=== PATIENT | male | born 1940 | race Caucasian/White ===

== ENCOUNTER → 2016-04-23 | Outpatient (CLI) | payer OTHER ==
[~2016-04-23] MED LIST: ALFU10TA30 PO; CLC100X PO; IBUP-1427 PO
[2016-04-23 13:49] LABS: CHOLESTEROL/HDL RATIO 3.9
== END | disposition home or self-care (01) ==
LOC: C.LABMFLN 08:10
PROVIDERS: ATTEND Family Medicine
DX: E78.5 Hyperlipidemia, unspecified (principal)

== ENCOUNTER → 2016-06-17 | Outpatient (CLI) | payer OTHER ==
[~2016-06-17] MED LIST changes: +ALFU10TA2 PO; -ALFU10TA30 PO
[2016-06-17 17:52] LABS: URINE APPEARANCE CLEAR (CLEAR); URINE BILIRUBIN NEG (NEG); URINE COLOR YELLOW; URINE NITRITE NEG (NEG); URINE SPECIFIC GRAVITY 1.008 (1.000-1.030); UROBILINOGEN NEG (NEG)
[2016-06-17 17:54] LABS: MANUAL MICROSCOPIC REQUIRED? NO; REVIEW REQ? NO
[2016-06-17 18:09] LABS: BLOOD UREA NITROGEN 17 mg/dl (7-18); BUN/CREATININE RATIO 9.1 (10-20); CALCIUM 8.7 mg/dl (8.5-10.1); CARBON DIOXIDE 28 mmol/L (21-32); CHLORIDE 105 mmol/L (98-107); GLUCOSE 94 mg/dl (70-99); PHOSPHORUS 2.8 mg/dl (2.5-4.9); POTASSIUM 4.1 mmol/L (3.5-5.1); SODIUM 140 mmol/L (136-145)
== END | disposition home or self-care (01) ==
LOC: C.LABMFLN 14:48
PROVIDERS: ATTEND Internal Medicine Nephrology
DX: N18.3 Chronic kidney disease, stage 3 (moderate) (principal)

== ENCOUNTER → 2016-09-26 | Outpatient (CLI) | payer OTHER ==
[~2016-09-26] MED LIST changes: -ALFU10TA2 PO; +ALFU10TA30 PO
== END | disposition home or self-care (01) ==
LOC: C.LABMFLN 07:09
PROVIDERS: ATTEND Urology
DX: C61 Malignant neoplasm of prostate (principal)

== ENCOUNTER → 2017-09-29 | Outpatient (CLI) | payer OTHER ==
[~2017-09-29] MED LIST changes: +ALFU10TA2 PO; -ALFU10TA30 PO
[2017-09-29 13:17] LABS: ALBUMIN 3.4 gm/dl (3.4-5.0); ALKALINE PHOSPHATASE 66 U/L (45-117); ALT/SGPT 26 U/L (12-78); AST/SGOT 20 U/L (15-37); BLOOD UREA NITROGEN 17 mg/dl (7-18); CALCIUM 8.4 mg/dl (8.5-10.1); CARBON DIOXIDE 27 mmol/L (21-32); CREATININE 1.84 mg/dl (0.60-1.40); GLUCOSE 89 mg/dl (70-99); POTASSIUM 4.2 mmol/L (3.5-5.1); SODIUM 138 mmol/L (136-145); TOTAL PROTEIN 6.9 gm/dl (6.4-8.2)
== END | disposition home or self-care (01) ==
LOC: C.LABMFLN 06:57
PROVIDERS: ATTEND Urology
DX: C64.9 Malignant neoplasm of unspecified kidney, except renal pelvis (principal)

== ENCOUNTER 2019-02-22 15:22 | Inpatient (IN) ==
[2019-02-22 16:47] LABS: Basophils # (auto) 0.01 K/uL (0-0.2); Basophils % (auto) 0.1 %; Eosinophils # (auto) 0.09 K/uL (0-0.5); Hematocrit (blood only) 28.8 % (42-52); Hemoglobin 9.9 g/dL (14.0-18.0); Immature Granulocytes # (auto) 0.04 K/uL (0.00-0.02); Immature Granulocytes % (auto) 0.4 %; Lymphocytes % (auto) 16.7 %; Mean Corpuscular Hemoglobin 33.8 pg (25-34); Mean Corpuscular Hgb Conc 34.4 g/dL (32-36); Mean Corpuscular Volume 98.3 fL (80-100); Mean Platelet Volume 9.7 fL (7.4-10.4); Monocytes # (auto) 0.72 K/uL (0.11-0.59); Neutrophils # (auto) 6.63 K/uL (1.4-6.5); Neutrophils % (auto) 73.8 %; Platelet Count 258 K/uL (130-400); RDW Coefficient of Variation 13.1 % (11.5-14.5); RDW Standard Deviation 46.3 fL (36.4-46.3); Red Blood Count 2.93 M/uL (4.7-6.1); White Blood Count 8.99 K/uL (4.8-10.8)
[2019-02-22] MEDS ORDERED: PANTOprazole 80 MG in DEXTROSE 5% 100 ML IV ONE (17:00)
[2019-02-22 17:06] LABS: Alanine Aminotransferase 24 U/L (12-78); Albumin Level 2.8 gm/dl (3.4-5.0); Aspartate Aminotransferase 14 U/L (15-37); BUN Creatinine Ratio 21.6 (10-20); Blood Urea Nitrogen 37 mg/dl (7-18); Calcium 7.7 mg/dl (8.5-10.1); Carbon Dioxide 24 mmol/L (21-32); Chloride 112 mmol/L (98-107); Creatinine Clr Calc Pharmacy 32.3 ml/min; Est GFR (African American) 43.5; Est GFR (Non-African American) 37.5; Glucose 108 mg/dl (70-99); Lipase 151 U/L (73-393); Sodium 139 mmol/L (136-145)
[2019-02-22 17:09] LABS: Albumin Globulin Ratio 0.9 (0.9-2); Alkaline Phosphatase 55 U/L (45-117); Bilirubin,Total 0.3 mg/dl (0.2-1); Globulin 3.1 gm/dl (2.5-4.0); Total Protein 5.9 gm/dl (6.4-8.2)
[2019-02-22] MEDS ORDERED: SODIUM CHLORIDE 0.9% 1000ML 2,000 ML IV ONE (17:14)
[2019-02-22] MEDS ORDERED: OPTIRAY 320 125ml IV PRN (17:48)
--- NOTE | 2019-02-22 18:37 | CT Scan Report ---
CT angio chest PE protocol CLINICAL HISTORY: 78 years-old Male presenting with hematemesis versus hemoptysis, clinical concern f or pulmonary embolus. TECHNIQUE: Multidetector CT angiography of the chest was performed after administration of intravenou s contrast. 3-D volumetric and/or maximum intensity projection (MIP) images were subsequently reconst ructed for review. IV contrast: 118 mL of Optiray 320. One or more dose lowering techniques were used consistent with the principles of ALARA (as low as reasonably achievable), including automatic expos ure control, mA or kV adjustment to individual patient size, and/or use of iterative reconstruction. COMPARISON: Contrast-enhanced chest CT from 11/10/2012. CT DOSE (mGy.cm): The estimated cumulative dose is 872.25 mGy.cm. 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 Pulmonary vasculature: The study is adequate for assessment of the pulmonary vascular tree. No filling defect within the pul monary arteries to suggest embolus. Main pulmonary artery is not enlarged. No flattening of the inter ventricular septum. No intracardiac filling defect. No reflux of contrast into the hepatic veins. Remaining chest: Soft tissues: Normal thyroid and thoracic inlet. Several enlarged and partially calcified mediastinal and bilateral hilar lymph nodes as on prior exam, which likely relate to a history of granulomatous disease. Mild atherosclerosis of the aorta. Normal heart size. Coronary artery calcification. No emma cardial or pleural effusion. Small sliding type hiatal hernia. Calcifications in the spleen and liver likely also relate to history of granulomatous disease. Lungs and airways: No pneumothorax. Mild bronchial wall thickening and trace bronchiectasis with a lo wer lobe predominance. Mild upper lobe predominant centrilobular emphysema. Pulmonary arteries are no t significantly enlarged relative to adjacent bronchi. No interlobular septal thickening. Minimal dep endent changes likely atelectasis. Prominent calcified granulomata in the left upper lobe. Solid 3 mm peripheral right lower lobe pulmonary nodule (series 4 image 49), previously likely obscured due to atelectasis. Solid 3 mm left apical pulmonary nodule (series 4 image 240), similar to prior. Musculoskeletal: Degenerative changes of the spine. IMPRESSION: 1. No evidence of pulmonary embolus. No acute intrathoracic pathology. 2. Emphysema and bronchitis likely smoking-related lung injury. 3. Evidence of old granulomatous disease. 4. Solid pulmonary nodules measuring up to 3 mm. At least one of these has been stable since 2013. T hese are nonspecific and an optional CT scan in 12 months could be considered per Fleischner Society 2017 recommendations below. Summary of Fleischner Society 2017 Recommendations (H Dipak et al. Guidelines for management of i ncidental pulmonary nodules detected on CT images: From the Fleischner Society 2017. Radiology 2017; 284: 228-243.) SOLID NODULES Single nodule; size < 6 mm * Low risk patients: No routine follow-up * High risk patients: Optional CT at 12 months Single nodule; size 6-8 mm * Low risk patients: CT at 6-12 months, then consider CT at 18-24 months * High risk patients: CT at 6-12 months, then at 18-24 months Single nodule; size > 8 mm * Either low or high risk patients: Consider CT at 3 months, PET/CT, or tissue sampling Multiple nodules; size < 6 mm * Low risk patients: No routine follow up * High risk patients: Optional CT at 12 months Multiple nodules; size 6-8 mm * Low risk patients: CT at 3-6 months, then consider CT at 18-24 months * High risk patients: CT at 3-6 months, then at 18-24 months Multiple nodules; size > 8 mm * Low risk patients: CT at 3-6 months, then consider at 18-24 months * High risk patients: CT at 3-6 months, then at 18-24 months SUBSOLID NODULES Single ground-glass nodule * Nodule size < 6 mm: No routine follow-up * Nodule size > or = 6 mm: CT at 6-12 months to confirm persistence, then CT every 2 years until 5 y ears Single part-solid nodule * Nodule size < 6 mm: No routine follow-up * Nodules size > or = 6 mm: CT at 3-6 months to confirm persistence. If unchanged and solid componen t remains < 6 mm, annual CT should be performed for 5 years Multiple nodules * Nodule size < 6 mm: CT at 3-6 months. If stable, consider CT at 2 and 4 years. * Nodules size > or = 6 mm: CT at 3-6 months. Subsequent management based on the most suspicious nod ule(s) NOTE: 1) These guidelines apply to incidental nodules. These guidelines do NOT apply to patients younger th an 35 years, immunocompromised patients, or patients with cancer. 2) Risk categories: * Low risk patients: Minimal or absent history of smoking and/or other known risk factors * High risk patients: History of smoking, exposure to other carcinogens, emphysema, fibrosis, upper lobe location, family history of lung cancer, etc. 3) If a nodule up to 8 mm is partly solid or is ground glass, further follow-up is required after 24 months to exclude possible slow growing adenocarcinoma. ACT 112: Negative or not required by law. Electronically signed by: Chetan Ardon M.D. 02/22/2019 6:36 PM
--- NOTE | 2019-02-22 18:56 | CT Scan Report ---
CT abd pelvis IV con only CLINICAL HISTORY: 78 years-old Male presenting with gi bleed. TECHNIQUE: Multidetector CT of the abdomen and pelvis was performed after the administration of intra venous contrast. IV contrast: 18 mL of Optiray 320. One or more dose lowering techniques were used co nsistent with the principles of ALARA (as low as reasonably achievable), including automatic exposure control, mA or kV adjustment to individual patient size, and/or use of iterative reconstruction. COMPARISON: 06/28/2013. CT DOSE (mGy.cm): The estimated cumulative dose is 872.25. FINDINGS: [employer] topogram: Brachytherapy seeds in the prostate. Lung bases: Normal heart size. No pericardial or pleural effusion. Minimal dependent changes likely a telectasis. Emphysema. Liver: Normal morphology. Few cysts or focally dilated bile ducts noted in the inferior right hepatic lobe. Patent hepatic vasculature. Biliary: No intrahepatic or extrahepatic biliary ductal dilatation. Gallbladder contains gallstones. Pancreas: Mild parenchymal atrophy. Spleen: Calcifications in the spleen suggesting history of granulomatous disease. Adrenal glands: Normal. Kidneys and ureters: Postsurgical changes of right nephrectomy. Multiple small cysts in the left kidn ey. Old parapelvic cysts or peripelvic cysts also suspected. No hydronephrosis. No nephrolithiasis. L eft ureter nondistended. Residual right ureter unremarkable. Bladder: Mild circumferential bladder wall thickening. Pelvic organs: Brachytherapy seeds in the prostate. Bowel: Diverticulosis of the proximal sigmoid and distal descending colon without pericolonic inflamm atory change or wall thickening. A portion of the sigmoid colon is contained within the left inguinal canal. The appendix is not visualized. No bowel obstruction. Small to moderate sliding type hiatal h ernia. Peritoneal cavity: Trace fluid in the right lower quadrant versus postsurgical changes of prior right inguinal hernia repair. No free fluid in the pelvis. No free intraperitoneal gas. Lymph nodes: No enlarged lymph nodes in the abdomen or pelvis. Vasculature: Atherosclerosis of the normal caliber abdominal aorta. IVC patent. Abdominal wall: Left inguinal hernia containing fat and herniated sigmoid colon as mentioned above. N o associated fluid in the hernia sac. Trace if any infiltration of the herniated mesentery. Musculoskeletal: Degenerative changes of the spine. Pars defect on the left at L5. No anterolisthesis . IMPRESSION: 1. A portion of the sigmoid colon is contained within a left inguinal hernia. No CT evidence to sugg est strangulation. Correlate clinically for reducibility. No bowel obstruction. 2. 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 3. No acute intra-abdominal pathology or evidence of gastrointestinal hemorrhage allowing for sensit ivity of this diagnosis on CT. 4. Small to moderate sliding type hiatal hernia. 5. Postsurgical changes and additional findings as above. ACT 112: Negative or not required by law. Electronically signed by: Chetan Ardon M.D. 02/22/2019 6:55 PM
[2019-02-22] MEDS: PANTOprazole 40 MG in DEXTROSE 5% 100 ML IV SCH (19:01)
[2019-02-22 19:23] LABS: Appearance Urine Clear (Clear); Bilirubin Urine Negative (Negative); Blood Urine Negative (Negative); Color Urine Yellow; Glucose Urine UA Negative (Negative); Ketones Urine Negative (Negative); Leukocyte Esterase Urine Negative (Negative); Nitrite Urine Negative (Negative); Protein Urine Negative (Negative); Urobilinogen Urine Negative (Negative); pH Urine 5.5 (4.5-7.5)
--- NOTE | 2019-02-22 20:06 | Emergency Department Note ---
Entered by Tiffany Campuzano acting as a scribe for He Stanton DO History of Present Illness General Chief complaint: Abdominal Pain Stated complaint: HERNIA, BLEEDING Source: patient History of Present Illness Provider complaint: peliv pain Onset (ago): hour(s) (this morning) Location: hip Pain Consistency: + constant Maximum Pain Intensity: 3 Quality: + other (pelic pain) Associated symptoms: + other (Positive black stools; Negative rhinorrhea; Negative sore throat; Negative hematemesis; Negative urinary symptoms;); no chest pain, no nausea/vomiting and no shortness of breath The patient, who is a 78 year old male with a medical history of hyperlipidemia, hypertension, and chronic kidney disease, presents to the Emergency Room with complaints of dark tarry stools, and spitting up blood. He notes he has had dark tarry stools for the past 2 days. He only spit up blood once today but notes he did not vomit but it was in his mucus and was not from coughing. He also admits that he has some burning over his left inguinal hernia.. The patient informs that he thinks that the hernia he has had for 5 to 6 years has ruptured. The patient states that his last bowel movement was this morning. The patient states that he was "hacking up" mucous that contained some blood. The patient denies hematemesis. The patient denies urinary symptoms, shortness of breath, rhinorrhea, sore throat, chest pain, or vomiting. The patient reports that he i s taking a baby aspirin. No dizziness or lightheadedness. Denies any blood thinners. Home Medications Home Medications Medication Instructions Recorded Confirmed Type aspirin 81 mg tablet,delayed 81 mg PO DAILY 09/09/18 02/22/19 History release alfuzosin 10 mg tablet,extended 10 mg PO DAILY #90 tab 10/07/18 02/22/19 Rx release 24 hr bisacodyl 5 mg tablet,delayed 5 mg PO DAILY PRN 12/28/18 02/22/19 History release losartan 25 mg PO DAILY 02/22/19 02/22/19 History Allergies Allergy/AdvReac Type Severity Reaction Status Date / Time Penicillins Allergy Unknown Verified 02/22/19 17:52 Past Med/Surg History Medical History Adenocarcinoma of prostate (Resolved) Chronic kidney disease (CKD), stage III (moderate) (Chronic) Hyperlipidemia (Chronic) Hypertension (Chronic) Impaired fasting glucose (Chronic) Renal cell carcinoma (Resolved) Solitary kidney, acquired (Chronic) Surgical History H/O inguinal hernia repair H/O right nephrectomy Family History Father Prostate cancer Mother Breast cancer Social History Preferred Language: Slovenian Communication Ability: Effective Hearing Ability: Use of Hearing Aid marital status: Single Current Living Situation: Significant Other current occupational status: retired Feels Safe at Home: Yes Smoking Status: Never smoker Tobacco Type: cigarettes ; Age Started Using Tobacco: 18 ; Age Quit Using Tobacco: 31 ; packs per day: 0.5 ; Cigarettes Per Day: 10 ; Hx Alcohol Use: No Hx Substance Use: No Dental Care, Regularly: No Seatbelt Use: always Sunscreen Use: Yes Review of Systems See HPI for pertinent positives & negatives. and A total of 10 systems reviewed and were otherwise negative Physical Exam Vital Signs Vital Signs - 24 hr 02/22/19 15:28 02/22/19 16:39 02/22/19 18:35 Temperature 36.8 C Temperature Source Oral Pulse Rate 105 H Pulse Rate [Right Finger] 83 Pulse Rate from SpO2 Sensor Respiratory Rate 20 20 Respiratory Effort / Characteristics Non-Labored Respiratory Depth Normal Normal Blood Pressure 125/71 Blood Pressure [Right Arm] 142/80 H Blood Pressure Mean 89 Blood Pressure Mean [Right Arm] 100 Blood Pressure Position [Right Arm] Lying Pulse Oximetry 99 97 97 Oxygen Delivery Method Room Air Room Air Sepsis Recent Fever Within 48 Hours No Sepsis Action Taken by Nursing No Action Required 02/22/19 19:33 Temperature Temperature Source Pulse Rate 90 Pulse Rate [Right Finger] Pulse Rate from SpO2 Sensor 89 Respiratory Rate 18 Respiratory Effort / Characteristics Respiratory Depth Blood Pressure 129/79 Blood Pressure [Right Arm] Blood Pressure Mean 84 Blood Pressure Mean [Right Arm] Blood Pressure Position [Right Arm] Pulse Oximetry 99 Oxygen Delivery Method Sepsis Recent Fever Within 48 Hours Sepsis Action Taken by Nursing GENERAL: alert, well appearing, well nourished, no distress, non-toxic, sitting up in bed EYE EXAM: normal conjunctiva OROPHARYNX: no exudate, no erythema, lips, buccal mucosa, and tongue normal and mucous membranes are moist NECK: supple, no nuchal rigidity, no adenopathy, non-tender LUNGS: Clear to auscultation. Normal chest wall mechanics HEART: no murmurs, S1 normal and S2 normal ABDOMEN: abdomen soft, non-tender, normo-active bowel sounds, no masses, no rebound or guarding. Left inguinal hernia which is really reducible. No testicular tenderness. No penile discharge. BACK: Back is symmetrical on inspection and there is no deformity, no midline tenderness, no CVA tenderness. SKIN: no rashes and no bruising UPPER EXTREMITIES: upper extremities are grossly normal. LOWER EXTREMITIES: No pitting edema, left inguinal hernia, mildly tender to palpation RECTAL: Dark HEM + stool NEURO EXAM: Normal sensorium, cranial nerves II-XII grossly intact, normal speech, no gross weakness of arms, no gross weakness of legs. Course Course ED COURSE: Vital signs were reviewed and showed normotensive. The patients medical record was reviewed The above diagnostic studies were performed and reviewed. ED treatments and interventions as stated above. 1605: The patient was evaluated in room C12. A complete history and physical examination was performed. 1905: I reviewed the patient's case with Dr. Rangel, [facility] Hospitalist. He will evaluate the patient for further management. 1915: Upon reevaluation, the patient is resting.I discussed my findings with the patient and he understands and agrees with the treatment plan. Based on the patients age, coexisting illnesses, exam and lab findings the decision to treat as an inpatient was made. The patient remained stable while under my care. The patient will be evaluated for further management. Consultations Consultation #1: I reviewed the patient's case with Dr. Rangel, [facility] Hospitalist. He will evaluate the patient for further management. Time: 19:05 Administered Medications Pantoprazole Sodium 40 mg/ (Dextrose) 100 mls @ 20 mls/hr IV Q5H PORFIRIO Stop: 03/24/19 17:14 Last Admin: 02/22/19 19:01 Dose: 20 mls/hr Documented by: [id number] Ioversol (Optiray 320 125ml) 118 ml IV ONCE PRN PRN Reason: Interaction Checking Stop: 02/26/19 17:47 Last Admin: 02/22/19 17:48 Dose: 1 ml Documented by: [id number] Discontinued Medications Pantoprazole Sodium 80 mg/ (Dextrose) 120 mls @ 480 mls/hr IV NOW ONE Stop: 02/22/19 17:14 Last Infusion: 02/22/19 18:54 Dose: 0 mls/hr Documented by: [id number] Admin: 02/22/19 18:31 Dose: 480 mls/hr Documented by: [id number] Sodium Chloride (Nss 1000ml) 2,000 mls @ 999 mls/hr IV .Q2H1M ONE Stop: 02/22/19 19:14 Last Infusion: 02/22/19 19:36 Dose: 0 mls/hr Documented by: [id number] Admin: 02/22/19 17:30 Dose: 999 mls/hr Documented by: [id number] Medical Decision Making Differential Diagnosis Differential diagnosis includes etiologies such as diverticulosis, AVM, coagulopathy, colitis, inflammatory bowel disease, malignancy, Sobeida-Buckner tea r, esophagitis, peptic ulcer disease, variceal bleed, gastritis, epistaxis, fissure, hemorrhoids, as well as others were entertained. Medical Records Attestation: I reviewed the patient's medical records. Home Medications Current Medication List: was personally reviewed by me Laboratory Data Attestation: I reviewed the patient's lab results. Result diagrams: 02/22/19 16:34 02/22/19 16:34 Lab Results 02/22/19 02/22/19 02/22/19 Range/Units 16:34 16:34 16:37 WBC 8.99 (4.8-10.8) K/uL RBC 2.93 L (4.7-6.1) M/uL Hgb 9.9 L (14.0-18.0) g/dL Hct 28.8 L (42-52) % MCV 98.3 (80-100) fL MCH 33.8 (25-34) pg MCHC 34.4 (32-36) g/dL RDW Std Deviation 46.3 (36.4-46.3) fL RDW Coeff of Rigo 13.1 (11.5-14.5) % Plt Count 258 (130-400) K/uL MPV 9.7 (7.4-10.4) fL Immature Gran % (Auto) 0.4 % Neut % (Auto) 73.8 % Lymph % (Auto) 16.7 % [place] % (Auto) 8.0 % Eos % (Auto) 1.0 % Baso % (Auto) 0.1 % Immature Gran # (Auto) 0.04 H (0.00-0.02) K/uL Neut # (Auto) 6.63 H (1.4-6.5) K/uL Lymph # (Auto) 1.50 (1.2-3.4) K/uL [place] # (Auto) 0.72 H (0.11-0.59) K/uL Eos # (Auto) 0.09 (0-0.5) K/uL Baso # (Auto) 0.01 (0-0.2) K/uL Sodium 139 (136-145) mmol/L Potassium 4.0 (3.5-5.1) mmol/L Chloride 112 H (98-107) mmol/L Carbon Dioxide 24 (21-32) mmol/L Anion Gap 3.0 (3-11) BUN 37 H (7-18) mg/dl Creatinine 1.73 H (0.6-1.4) mg/dl Est Cr Clr Drug Dosing 32.3 ml/min Est GFR ( Amer) 43.5 Est GFR (Non-Af Amer) 37.5 BUN/Creatinine Ratio 21.6 H (10-20) Glucose 108 H (70-99) mg/dl Calcium 7.7 L (8.5-10.1) mg/dl Total Bilirubin 0.3 (0.2-1) mg/dl AST 14 L (15-37) U/L ALT 24 (12-78) U/L Alkaline Phosphatase 55 (45-117) U/L Total Protein 5.9 L (6.4-8.2) gm/dl Albumin 2.8 L (3.4-5.0) gm/dl Globulin 3.1 (2.5-4.0) gm/dl Albumin/Globulin Ratio 0.9 (0.9-2) Lipase 151 (73-393) U/L Urine Color Urine Appearance (Clear) Urine pH (4.5-7.5) Ur Specific [place] (1.000-1.030) Urine Protein (Negative) Urine Glucose (UA) (Negative) Urine Ketones (Negative) Urine Blood (Negative) Urine Nitrite (Negative) Urine Bilirubin (Negative) Urine Urobilinogen (Negative) Ur Leukocyte Esterase (Negative) Blood Type A Positive Antibody Screen NEGATIVE 02/22/19 Range/Units 19:00 WBC (4.8-10.8) K/uL RBC (4.7-6.1) M/uL Hgb (14.0-18.0) g/dL Hct (42-52) % MCV (80-100) fL MCH (25-34) pg MCHC (32-36) g/dL RDW Std Deviation (36.4-46.3) fL RDW Coeff of Rigo (11.5-14.5) % Plt Count (130-400) K/uL MPV (7.4-10.4) fL Immature Gran % (Auto) % Neut % (Auto) % Lymph % (Auto) % [place] % (Auto) % Eos % (Auto) % Baso % (Auto) % Immature Gran # (Auto) (0.00-0.02) K/uL Neut # (Auto) (1.4-6.5) K/uL Lymph # (Auto) (1.2-3.4) K/uL [place] # (Auto) (0.11-0.59) K/uL Eos # (Auto) (0-0.5) K/uL Baso # (Auto) (0-0.2) K/uL Sodium (136-145) mmol/L Potassium (3.5-5.1) mmol/L Chloride (98-107) mmol/L Carbon Dioxide (21-32) mmol/L Anion Gap (3-11) BUN (7-18) mg/dl Creatinine (0.6-1.4) mg/dl Est Cr Clr Drug Dosing ml/min Est GFR ( Amer) Est GFR (Non-Af Amer) BUN/Creatinine Ratio (10-20) Glucose (70-99) mg/dl Calcium (8.5-10.1) mg/dl Total Bilirubin (0.2-1) mg/dl AST (15-37) U/L ALT (12-78) U/L Alkaline Phosphatase (45-117) U/L Total Protein (6.4-8.2) gm/dl Albumin (3.4-5.0) gm/dl Globulin (2.5-4.0) gm/dl Albumin/Globulin Ratio (0.9-2) Lipase (73-393) U/L Urine Color Yellow Urine Appearance Clear (Clear) Urine pH 5.5 (4.5-7.5) Ur Specific [place] 1.030 (1.000-1.030) Urine Protein Negative (Negative) Urine Glucose (UA) Negative (Negative) Urine Ketones Negative (Negative) Urine Blood Negative (Negative) Urine Nitrite Negative (Negative) Urine Bilirubin Negative (Negative) Urine Urobilinogen Negative (Negative) Ur Leukocyte Esterase Negative (Negative) Blood Type Antibody Screen Imaging Data Radiologist's Impression: Radiology results as stated below per my review and the radiologist's interpretation: CT abd pelvis IV con only CLINICAL HISTORY: 78 years-old Male presenting with gi bleed. TECHNIQUE: Multidetector CT of the abdomen and pelvis was performed after the administration of intravenous contrast. IV contrast: 18 mL of Optiray 320. One or more dose lowering techniques were used consistent with the principles of ALARA (as low as reasonably achievable), including automatic exposure control, mA or kV adjustment to individual patient size, and/or use of iterative reconstruction. COMPARISON: 06/28/2013. CT DOSE (mGy.cm): The estimated cumulative dose is 872.25. FINDINGS: Gate Person topogram: Brachytherapy seeds in the prostate. Lung bases: Normal heart size. No pericardial or pleural effusion. Minimal dependent changes likely atelectasis. Emphysema. Liver: Normal morphology. Few cysts or focally dilated bile ducts noted in the inferior right hepatic lobe. Patent hepatic vasculature. Biliary: No intrahepatic or extrahepatic biliary ductal dilatation. Gallbladder contains gallstones. Pancreas: Mild parenchymal atrophy. Spleen: Calcifications in the spleen suggesting history of granulomatous d isease. Adrenal glands: Normal. Kidneys and ureters: Postsurgical changes of right nephrectomy. Multiple small cysts in the left kidney. Old parapelvic cysts or peripelvic cysts also suspected. No hydronephrosis. No nephrolithiasis. Left ureter nondistended. Residual right ureter unremarkable. Bladder: Mild circumferential bladder wall thickening. Pelvic organs: Brachytherapy seeds in the prostate. Bowel: Diverticulosis of the proximal sigmoid and distal descending colon without pericolonic inflammatory change or wall thickening. A portion of the sigmoid colon is contained within the left inguinal canal. The appendix is not visualized. No bowel obstruction. Small to moderate sliding type hiatal hernia. Peritoneal cavity: Trace fluid in the right lower quadrant versus postsurgical changes of prior right inguinal hernia repair. No free fluid in the pelvis. No free intraperitoneal gas. Lymph nodes: No enlarged lymph nodes in the abdomen or pelvis. Vasculature: Atherosclerosis of the normal caliber abdominal aorta. IVC patent. Abdominal wall: Left inguinal hernia containing fat and herniated sigmoid colon as mentioned above. No associated fluid in the hernia sac. Trace if any infiltration of the herniated mesentery. Musculoskeletal: Degenerative changes of the spine. Pars defect on the left at L5. No anterolisthesis. IMPRESSION: 1. A portion of the sigmoid colon is contained within a left inguinal hernia. No CT evidence to suggest strangulation. Correlate clinically for reducibility. No bowel obstruction. 2. Evidence of prior prostate cancer treatment with brachytherapy seeds and suspected mild chronic bladder outlet obstruction. 3. No acute intra-abdominal pathology or evidence of gastrointestinal hemorrhage allowing for sensitivity of this diagnosis on CT. 4. Small to moderate sliding type hiatal hernia. 5. Postsurgical changes and additional findings as above. ACT 112: Negative or not required by law. Electronically signed by: Chetan Ardon M.D. 02/22/2019 6:[address] angio chest PE protocol CLINICAL HISTORY: 78 years-old Male presenting with hematemesis versus hemoptysis, clinical concern for pulmonary embolus. TECHNIQUE: Multidetector CT angiography of the chest was performed after admi nistration of intravenous contrast. 3-D volumetric and/or maximum intensity projection (MIP) images were subsequently reconstructed for review. IV contrast: 118 mL of Optiray 320. One or more dose lowering techniques were used consistent with the principles of ALARA (as low as reasonably achievable), including automatic exposure control, mA or kV adjustment to individual patient size, and/or use of iterative reconstruction. COMPARISON: Contrast-enhanced chest CT from 11/10/2012. CT DOSE (mGy.cm): The estimated cumulative dose is 872.25 mGy.cm. FINDINGS: Gate Person topogram: Brachytherapy seeds in the prostate. Pulmonary vasculature: The study is adequate for assessment of the pulmonary vascular tree. No filling defect within the pulmonary arteries to suggest embolus. Main pulmonary artery is not enlarged. No flattening of the interventricular septum. No intracardiac filling defect. No reflux of contrast into the hepatic veins. Remaining chest: Soft tissues: Normal thyroid and thoracic inlet. Several enlarged and partially calcified mediastinal and bilateral hilar lymph nodes as on prior exam, which likely relate to a history of granulomatous disease. Mild atherosclerosis of the aorta. Normal heart size. Coronary artery calcification. No pericardial or pleural effusion. Small sliding type hiatal hernia. Calcifications in the spleen and liver likely also relate to history of granulomatous disease. Lungs and airways: No pneumothorax. Mild bronchial wall thickening and trace b ronchiectasis with a lower lobe predominance. Mild upper lobe predominant centrilobular emphysema. Pulmonary arteries are not significantly enlarged relative to adjacent bronchi. No interlobular septal thickening. Minimal dependent changes likely atelectasis. Prominent calcified granulomata in the l eft upper lobe. Solid 3 mm peripheral right lower lobe pulmonary nodule (series 4 image 49), previously likely obscured due to atelectasis. Solid 3 mm left apical pulmonary nodule (series 4 image 240), similar to prior. Musculoskeletal: Degenerative changes of the spine. IMPRESSION: 1. No evidence of pulmonary embolus. No acute intrathoracic pathology. 2. Emphysema and bronchitis likely smoking-related lung injury. 3. Evidence of old granulomatous disease. 4. Solid pulmonary nodules measuring up to 3 mm. At least one of these has been stable since 2013. These are nonspecific and an optional CT scan in 12 months could be considered per Fleischner Society 2017 recommendations below. Summary of Fleischner Society 2017 Recommendations (H Dipak et al. Guidelines for management of incidental pulmonary nodules detected on CT images: From the Fleischner Society 2017. Radiology 2017; 284: 228-243.) SOLID NODULES Single nodule; size < 6 mm * Low risk patients: No routine follow-up * High risk patients: Optional CT at 12 months Single nodule; size 6-8 mm * Low risk patients: CT at 6-12 months, then consider CT at 18-24 months * High risk patients: CT at 6-12 months, then at 18-24 months Single nodule; size > 8 mm * Either low or high risk patients: Consider CT at 3 months, PET/CT, or tissue sampling Multiple nodules; size < 6 mm * Low risk patients: No routine follow up * High risk patients: Optional CT at 12 months Multiple nodules; size 6-8 mm * Low risk patients: CT at 3-6 months, then consider CT at 18-24 months * High risk patients: CT at 3-6 months, then at 18-24 months Multiple nodules; size > 8 mm * Low risk patients: CT at 3-6 months, then consider at 18-24 months * High risk patients: CT at 3-6 months, then at 18-24 months SUBSOLID NODULES Single ground-glass nodule * Nodule size < 6 mm: No routine follow-up * Nodule size > or = 6 mm: CT at 6-12 months to confirm persistence, then CT every 2 years until 5 years Single part-solid nodule * Nodule size < 6 mm: No routine follow-up * Nodules size > or = 6 mm: CT at 3-6 months to confirm persistence. If unchanged and solid component remains < 6 mm, annual CT should be performed for 5 years Multiple nodules * Nodule size < 6 mm: CT at 3-6 months. If stable, consider CT at 2 and 4 years. * Nodules size > or = 6 mm: CT at 3-6 months. Subsequent management based on the most suspicious nodule(s) NOTE: 1) These guidelines apply to incidental nodules. These guidelines do NOT apply to patients younger than 35 years, immunocompromised patients, or patients with cancer. 2) Risk categories: * Low risk patients: Minimal or absent history of smoking and/or other known risk factors * High risk patients: History of smoking, exposure to other carcinogens, emphysema, fibrosis, upper lobe location, family history of lung cancer, etc. 3) If a nodule up to 8 mm is partly solid or is ground glass, further follow-up is required after 24 months to exclude possible slow growing adenocarcinoma. ACT 112: Negative or not required by law. Electronically signed by: Chetan Ardon M.D. 02/22/2019 6:36 PM Blood Pressure Blood Pressure Findings: Normal blood pressure MDM Narrative Patient is a 78-year-old male who presents the ER for spitting up blood and dark tarry stools. Dark stools have been present for the past 2 days. He only spit up blood once today and notes it was when he was bringing up mucus but he denies vomiting. IV was established blood work was obtained. Hemoglobin was slightly low at 9.9 down from 14. No significant leukocytosis. BMP with an elevated BUN and a creatinine 1.73 consistent with previous. UA was negative. Lipase LFTs a nd bilirubin was unremarkable. Patient had a left inguinal hernia which is reducible, he notes he has had some tingling over it recently. He has had no vomiting and has been having bowel movements. CT abdomen pelvis was performed as well as CT of the chest that shows pulmonary nodules along with a hernia which is not incarcerated. CT of the chest was performed as he cannot differentiate between coughing up blood versus vomiting blood. His clinical exam is not consistent with incarceration. Patient was given Protonix bolus and Protonix drip. Patient was given 2 L IV fluids. Patient family were updated bedside. Discussed with the hospitalist for observation due to likely upper GI bleed. Impression & Plan UGIB (upper gastrointestinal bleed), Anemia, Inguinal hernia Discharge Plan Visit Data Chief Complaint: Abdominal Pain Stated Complaint: HERNIA, BLEEDING ED Provider: He Stanton Discharge Problem: UGIB (upper gastrointestinal bleed), Anemia, Inguinal hernia Patient Disposition: Being Evaluated by Hospitalist Forms Stand Alone Forms: Call Back Authorization, [facility] Prescriptions Prescriptions: No Action aspirin [Aspir-81] 81 mg tablet,delayed release (DR/EC) 81 mg PO DAILY RF: 0 alfuzosin 10 mg tablet extended release 24 hr 10 mg PO DAILY Qty: 90 RF: 3 bisacodyl [Dulcolax (bisacodyl)] 5 mg tablet,delayed release (DR/EC) 5 mg PO DAILY PRN (Reason: Constipation) RF: 0 losartan 25 mg tablet 25 mg PO DAILY RF: 0 Referrals Referrals: Bailey Clark MD [Primary Care Provider] - Discharge Problem: Anemia Qualifiers: Anemia type: unspecified type Qualified Code(s): D64.9 - Anemia, unspecified Inguinal hernia Qualifiers: Obstruction and gangrene presence: without obstruction or gangrene Laterality: unilateral Recurrence: not specified as recurrent Qualified Code(s): K40.90 - Unilateral inguinal hernia, without obstruction or gangrene, not specified as recurrent The scribe's documentation has been prepared under my direction and personally reviewed by me in its entirety. I confirm that the note above accurately reflects all work, treatment, procedures, and medical decision making performed by me.
--- NOTE | 2019-02-22 20:47 | History & Physical Report ---
Date of Service February 22, 2019 Assessment & Plan (1) UGIB (upper gastrointestinal bleed): 78-year-old male with history of prostate cancer, renal cancer s/p right nephrectomy presents with 2 days of melena and intermittent left lower quadrant abdominal pain. Patient was found to have heme positive stools and asymptomatic anemiahemoglobin of 9.9, down from 15.6, 09/28/18. Patient did report having left lower abdominal painno signs of strangulation of hernia, no fevers or chills, no leukocytosis. Vitals are stable. Melanotic stools, anemiaconcern for upper GI bleed Heme positive stools, one episode of bloody sputum Chest CT, negative for PE. Abdominal CT did not show any signs of concerning for strangulation of left inguinal hernia. Keep patient n.p.o., hold aspirin, hold antihypertensives, blood consent obtained, type and cross Continue Protonix drip and IV fluids 100 cc/h Gastroenterology consulted, appreciate recommendations Anemia 9.9, down from 15.6 on 09/28/18 Consented, type and cross Follow H&H every 4 hours x 2, transfuse if below 7 or symptomatic Inguinal hernia, left -Reducible, AB CT no signs of strangulation, patient is non-toxic Chronic kidney disease, history of renal cancer status post nephrectomy Hold losartan History of prostate cancer Hold alfuzosin DVT prophylaxis Contraindicated in the setting of anemia, possible upper GI bleed CODE STATUS Full FEN N.p.o., NS 100 cc/h (2) Anemia: (3) Inguinal hernia: (4) Adenocarcinoma of prostate: (5) Hyperlipidemia: (6) Hypertension: (7) Chronic kidney disease (CKD), stage III (moderate): (8) Impaired fasting glucose: (9) Renal cell carcinoma: (10) Solitary kidney, acquired: History of Present Illness Primary Care Provider: Bailey Clark MD 78-year-old male with history of prostate cancer, renal cancer s/p right nephrectomy presents with 2 days of melena and intermittent left lower quadrant abdominal pain. He noted blood in his sputum when spitting this afternoon. He describes the left lower abdominal pain being over the region of his inguinal hernia. He states that this can hurt from time to time, but it felt sharp in nature this afternoon. It is since resolved. He denies feeling weak, fatigue or short of breath. He denies chest pain. He denies a history of peptic ulcers disease. He has had colonoscopies every 10 years without any abnormal findings. He is currently due for colonoscopy. Allergies Allergy/AdvReac Type Severity Reaction Status Date / Time Penicillins Allergy Unknown Verified 02/22/19 17:52 Home Medications Home Medications Medication Instructions Recorded Confirmed Type aspirin 81 mg tablet,delayed 81 mg PO DAILY 09/09/18 02/22/19 History release alfuzosin 10 mg tablet,extended 10 mg PO DAILY #90 tab 10/07/18 02/22/19 Rx release 24 hr bisacodyl 5 mg tablet,delayed 5 mg PO DAILY PRN 12/28/18 02/22/19 History release losartan 25 mg PO DAILY 02/22/19 02/22/19 History Past Med/Surg History Medical History Adenocarcinoma of prostate (Resolved) Chronic kidney disease (CKD), stage III (moderate) (Chronic) Hyperlipidemia (Chronic) Hypertension (Chronic) Impaired fasting glucose (Chronic) Renal cell carcinoma (Resolved) Solitary kidney, acquired (Chronic) Surgical History H/O inguinal hernia repair H/O right nephrectomy Family History Father Prostate cancer Mother Breast cancer Social History Preferred Language: Frisian Communication Ability: Effective Hearing Ability: Use of Hearing Aid 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 Beliefs That Will Affect Care: None marital status: Single Current Living Situation: Alone current occupational status: retired Feels Safe at Home: Yes Smoking Status: Unknown if ever smoked Dental Care, Regularly: No Seatbelt Use: always Sunscreen Use: Yes Review of Systems Constitutional: no fever, no chills, no fatigue and no weakness Ear, Nose, Mouth, Throat: no hearing loss, no sinus pain/pressure and no sore throat Respiratory: no cough, no dyspnea and no wheezing Cardiovascular: no chest pain, no palpitations, no lightheadedness and no edema Gastrointestinal: + abdominal pain (LLQ, resolved ) and + melena; no nausea, no vomiting, no coffee ground emesis, no change in bowel habits and no diarrhea/loose stools Genitourinary: no dysuria and no difficulty urinating Physical Exam Constitutional: WD/WN, vitals as above Eyes: PERRL, conjunctivae normal, anicteric sclerae ENMT: external ear and nose normal, oropharynx normal Neck: trachea midline, no thyromegaly Respiratory: normal respiratory effort, lungs clear to auscultation Cardiovascular: RRR, no murmur, no edema Gastrointestinal (Abdomen): normal bowel sounds, soft, nontender, no hepatosplenomegaly reducible left inguinal hernia Musculoskeletal: no cyanosis or clubbing, extremities motor strength 5/5 Skin: no rashes, warm and dry Neurologic: PERRL, EOMI, accommodation nl, no face palsy, no dysarthria Psychiatric: A+Ox3, euthymic affect Results & Data Vital Signs (Past 12 Hours) Vital Signs Temp Pulse Pulse Resp BP BP Pulse Ox 02/22/19 19:33 90 18 129/79 99 02/22/19 18:35 83 20 142/80 H 97 02/22/19 16:39 97 02/22/19 15:28 36.8 C 105 H 20 125/71 99 Code Status & VTE Plan VTE Prophylaxis Plan VTE Prophylaxis will be ordered: No Critical Care Time Critical Care Time: Yes Total Critical Care Time: 40 Total critical care time was 40 minutes Supervising Physician Co-Signing Physician Notes Attending addendum: I have physically seen this patient, have supervised the medical residents activities, and agree with the H&P unless as otherwise noted. Assessment and Plan: Upper GI bleed/hematemesis/symptomatic anemia- Preceded by melenic stools. Initial hemoglobin had decreased to 9.9 upon admission. Patient large volume hematemesis while in the bathroom in the ED, with subsequent hemoglobin 5.8. Transfusing 2 units PRBCs now, Admitting to the ICU. NPO Suspect bleeding secondary to daily aspirin, which will be held. Protonix drip. Serial H&H's every 4 hours. Consult gastroenterology, Dr. Salbador Meeks coming into the hospital tonight to EGD the patient. Remainder of orders and notations as noted. Resident Activity Tracking Resident Involvement: Resident Care Provided Care Provided: Adult Hospital Medicine (1) Anemia Anemia type: unspecified type Qualified Code(s): D64.9 - Anemia, unspecified (2) Inguinal hernia Laterality: unilateral Obstruction and gangrene presence: without obstruction or gangrene Recurrence: not specified as recurrent Qualified Code(s): K40.90 - Unilateral inguinal hernia, without obstruction or gangrene, not specified as recurrent
[2019-02-22] MEDS ORDERED: SODIUM CHLORIDE 0.9% 250 ML IV PRN ×2 (21:42→21:43)
--- NOTE | 2019-02-22 21:42 | Emergency Department Note ---
ED Visit Note I was called to patient's bedside urgently due to a syncopal event and hematemesis while the patient was going to the bathroom. Nursing staff was p resent throughout and noted the patient became pale and diaphoretic, complained of nausea, and subsequently lost consciousness. No seizure-like activity was noted. There was a large amount of hematemesis noted in the bathroom. Staff assisted in placing the patient back in bed. Nurse stated the patient did not hit his head. Patient regained consciousness quickly upon being placed back in bed in the supine position. Repeat blood pressure improved, pulse ox 96%, and heart rate 89. A repeat H&H was ordered and was being drawn at bedside. The admitting hospitalist was notified of this event and came to bedside as well. On my repeat evaluation, patient denied any current nausea, chest pain, trouble breathing, and was mentating appropriately. . : Anemia Qualifiers: Anemia type: unspecified type Qualified Code(s): D64.9 - Anemia, unspecified Inguinal hernia Qualifiers: Obstruction and gangrene presence: without obstruction or gangrene Laterality: unilateral Recurrence: not specified as recurrent Qualified Code(s): K40.90 - Unilateral inguinal hernia, without obstruction or gangrene, not specified as recurrent
[2019-02-22 22:21] LABS: Basophils # (auto) 0.01 K/uL (0-0.2); Basophils % (auto) 0.1 %; Eosinophils # (auto) 0.08 K/uL (0-0.5); Eosinophils % (auto) 0.6 %; Hematocrit (blood only) 21.4 % (42-52); Hemoglobin 7.3 g/dL (14.0-18.0); Immature Granulocytes # (auto) 0.07 K/uL (0.00-0.02); Immature Granulocytes % (auto) 0.5 %; Lymphocytes # (auto) 3.85 K/uL (1.2-3.4); Lymphocytes % (auto) 28.7 %; Mean Corpuscular Hemoglobin 33.2 pg (25-34); Mean Corpuscular Hgb Conc 34.1 g/dL (32-36); Mean Corpuscular Volume 97.3 fL (80-100); Mean Platelet Volume 9.6 fL (7.4-10.4); Monocytes % (auto) 8.9 %; Neutrophils # (auto) 8.21 K/uL (1.4-6.5); Neutrophils % (auto) 61.2 %; Platelet Count 244 K/uL (130-400); RDW Coefficient of Variation 13.2 % (11.5-14.5); RDW Standard Deviation 45.7 fL (36.4-46.3); White Blood Count 13.42 K/uL (4.8-10.8)
[2019-02-22 22:38] LABS: RBC Morphology Unremarkable
[2019-02-22] MEDS ORDERED: METOCLOPRAMIDE HCL INJ 5 MG/ML 2 ML VIAL IV STA (22:38)
[2019-02-22 22:48] LABS: INR 1.1 (0.9-1.1); Partial Thromboplastin Ratio 0.8; Partial Thromboplastin Time 21.8 Seconds (21.0-31.0); Prothrombin Time 11.4 Seconds (9.0-12.0)
--- NOTE | 2019-02-22 22:57 | Gastrointestinal Consultation ---
Date of Consultation February 22, 2019 Assessment & Plan (1) UGIB (upper gastrointestinal bleed): with hematemesis, ddx includes PUD vs. AVM vs variceal bleed vs. malignancy Recs: -most recent hgb noted to be below 6, agree with PRBC transfusion for hgb <7 -supportive care, IVFs -NPO -protonix drip -Proceed with EGD. -risks/benefits and procedure discussed with patient, who agrees to proceed Thank you for allowing me to participate in the care of this patient. History of Present Illness Reason for Consultation: GI bleed Requesting Physician: Dr. Souza History of Present Illness 78 yo male with hx prostate ca s/p brachytherapy, renal cancer s/p right nephrectomy, hernia surgery who presented with melena and lower abdominal pains. In the ER noted to have moderate hematemesis with clots, GI consulted for this. He denies any previous history of GI bleeding, no prior EGDs. Notes he has been feeling lightheaded and dizzy the last few days, and had a brief syncopal episode when he had hematemesis this evening in the ER. He also notes LLQ abdominal pains and is noted to have a portion of his sigmoid colon inside an inguinal hernia on CT A/P done today, without any signs of strangulation. Currently without any pains, VSS. hgb is noted to be 7.3 from baseline of 15.6 in September 2018. Currently denies any NSAID abuse, previous hx PUD. Denies alcohol abuse. No history of liver disease, and no liver abnormalities noted on CT A/P. Otherwise denies any other symptoms. He is on ASA 81 mg. Labs reviewed, notable for CKD and anemia, normal platelets. No prior EGD, last colonoscopy 11 years ago and wnl. Allergies Allergy/AdvReac Type Severity Reaction Status Date / Time Penicillins Allergy Unknown Verified 02/22/19 17:52 Home Medications Home Medications Medication Instructions Recorded Confirmed Type aspirin 81 mg tablet,delayed 81 mg PO DAILY 09/09/18 02/22/19 History release alfuzosin 10 mg tablet,extended 10 mg PO DAILY #90 tab 10/07/18 02/22/19 Rx release 24 hr bisacodyl 5 mg tablet,delayed 5 mg PO DAILY PRN 12/28/18 02/22/19 History release losartan 25 mg PO DAILY 02/22/19 02/22/19 History Patient History Medical History Adenocarcinoma of prostate (Resolved) Chronic kidney disease (CKD), stage III (moderate) (Chronic) Hyperlipidemia (Chronic) Hypertension (Chronic) Impaired fasting glucose (Chronic) Renal cell carcinoma (Resolved) Solitary kidney, acquired (Chronic) Surgical History H/O inguinal hernia repair H/O right nephrectomy Family History Father Prostate cancer Mother Breast cancer Social History Preferred Language: Kyrgyz Communication Ability: Effective Hearing Ability: Use of Hearing Aid marital status: Single Current Living Situation: Significant Other current occupational status: retired Feels Safe at Home: Yes Smoking Status: Never smoker Tobacco Type: cigarettes ; Age Started Using Tobacco: 18 ; Age Quit Using Tobacco: 31 ; packs per day: 0.5 ; Cigarettes Per Day: 10 ; Hx Alcohol Use: No Hx Substance Use: No Dental Care, Regularly: No Seatbelt Use: always Sunscreen Use: Yes Review of Systems Constitutional: no fever, no chills and no weight loss Eyes: as per Subjective / HPI Ear, Nose, Mouth, Throat: as per Subjective / HPI Respiratory: no dyspnea and no dyspnea on exertion Cardiovascular: no chest pain and no palpitations Gastrointestinal: as per Subjective / HPI Musculoskeletal: no joint pain and no swelling Integumentary: no rash and no lesions Neurologic: no numbness and no paresthesia Psychiatric: no depression and no anxiety Endocrine: no fatigue Hematologic / Lymphatic: no easy bleeding and no easy bruising Physical Exam Constitutional: WD/WN, vitals as above Eyes: EOM intact bilaterally Neck: normal visual inspection Respiratory: normal respiratory effort, lungs clear to auscultation Cardiovascular: RRR, no murmur, no edema Gastrointestinal (Abdomen): Inspection/Auscultation: abdomen normal to inspection; abdomen not distended Percussion/Palpation: abdomen soft; abdomen nontender and no hepatosplenomegaly Musculoskeletal: Extremities: no cyanosis Gait: normal gait Skin: no rashes, warm and dry Neurologic: moves all extremities Psychiatric: A+Ox3, euthymic affect Results & Data Vital Signs (Past 12 Hours) Vital Signs Temp Pulse Pulse Resp BP BP Pulse Ox 02/22/19 21:35 85 24 139/63 95 02/22/19 21:33 97 H 22 98/62 L 02/22/19 21:20 103 H 22 112/62 98 02/22/19 19:40 89 20 99 02/22/19 19:33 90 18 129/79 99 02/22/19 18:35 83 20 142/80 H 97 02/22/19 16:39 97 02/22/19 15:28 36.8 C 105 H 20 125/71 99 PG Care Time/CCT Total # of Minutes Spent Total Time Spent with Patient: Total time spent is greater than 50% in coordination of care (as documented) at patient's floor/unit and/or counseling patient:
[2019-02-22] MEDS ORDERED: SUCCINYLCHOLINE CHLORIDE 20 MG/ML 10 ML VIAL ONE (23:13)
[2019-02-22] MEDS ORDERED: LIDOCAINE HCL 2% 2 ML VIAL/AMP(20MG/ML) INFIL ONE (23:13)
[2019-02-22] MEDS ORDERED: PROPOFOL IV EMULSION 10 MG/ML 20 ML VIAL IV ONE (23:13)
[2019-02-22] MEDS ORDERED: fentaNYL citrate 100 MCG/2 ML VIAL ONE ×2 (23:29→23:55)
[2019-02-23] MEDS ORDERED: PROPOFOL IV EMULSION 10 MG/ML 100 ML VIAL IV ONE (00:09)
[2019-02-23] MEDS: propofoL 1,000 MG/100 ML VIAL IV SCH ×2 (00:10→09:46)
--- NOTE | 2019-02-23 00:13 | Communication Note ---
Date of Service: February 23, 2019 GI brief EGD note: large amounts of old blood and clots were found in the fundus, suctioned and washed out thoroughly. No active bleeding noted in entire stomach and duodenum. A medium-large hiatal hernia was noted. At the GE junction there was an esophageal ulcer with an adherent clot, likely source of bleeding. Ulcer was injected with 2.5 cc of 1:10,000 epinephrine and then 2 endoclips were applied succesfully to achieve hemostasis. No active bleeding noted at the end of the procedure. Summary: esophageal ulcer with adherent clot, carries a high risk for rebleeding (approximately 40%) Recs: 1.protonix drip for 72 hours then protonix 40 mg BID thereafter for 3 months 2.keep intubated, NPO strictly 3.trend H/H, transfuse prn hgb <7 4.supportive care, IVFs 5. will need repeat EGD in 3 months at the latest, possibly sooner rest as per primary team Salbador Meeks MD Gastroenterology
--- NOTE | 2019-02-23 00:37 | GI REPORT ---
Patient Name: Gordy Avila Procedure Date: 02/22/2019 11:17 PM Date of : 1940 Admit Type: Emergency Department Age: 78 Gender: Male Attending MD: Salbador Meeks MD Procedure: Upper GI endoscopy Providers: Salbador Meeks MD Referring MD: He Stanton Md Indications: Hematemesis Medicines: Monitored Anesthesia Care Complications: No immediate complications. Estimated blood loss: minimal. Estimated Blood Loss: Estimated blood loss was minimal. Procedure: Pre-Anesthesia Assessment: - Prior Anticoagulants: The patient has taken no previous anticoagulant or antiplatelet agents. - ASA Grade Assessment: III - A patient with severe systemic disease. After obtaining informed consent, the endoscope was passed under direct vision. Throughout the procedure, the patient's blood pressure, pulse, and oxygen saturations were monitored continuously. The Endoscope was introduced through the mouth, and advanced to the second part of duodenum. The upper GI endoscopy was accomplished without difficulty. The patient tolerated the procedure well. Findings: One cratered esophageal ulcer at the GE junction and stigmata of recent bleeding was found in the form of an adherent clot. Area was successfully injected with 3 mL of a 1:10,000 solution of epinephrine for hemostasis. For hemostasis, two hemostatic clips were successfully placed. There was no bleeding at the end of the procedure. Estimated blood loss was minimal. Clotted blood was found in the gastric fundus. this was washed and suctioned out extensively. No evidence of active bleeding noted. The duodenal bulb and second portion of the duodenum were normal. No evidence of active bleeding noted. Impression: - Esophageal ulcer. Injected. Clips were placed. - Clotted blood in the gastric fundus. - Normal duodenal bulb and second portion of the duodenum. - No specimens collected. Recommendation: - Return patient to ICU for ongoing care. - NPO. -avoid NG/OG tube insertion for 48 hours -protonix drip for a total of 72 hours, then switch to 40 mg BID thereafter for 3 months -trend H/H, transfuse hgb <7 -supportive care, IVFs -will need repeat EGD in no later than 3 months, possibly sooner Salbador Meeks MD 02/23/2019 12:37:01 AM This report has been signed electronically. Note Initiated On: 02/22/2019 11:17 PM Number of Addenda: 0 I attest to the content of the Intraoperative Record and orders documented therein, exceptions below {[id number]}
[2019-02-23] MEDS ORDERED: ONDANSETRON INJ 2 MG/ML 2 ML VIAL IV PRN (00:51)
[2019-02-23] MEDS ORDERED: SODIUM CHLORIDE 0.9% 1000ML 1,000 ML IV SCH (00:51)
[2019-02-23] MEDS: PANTOprazole 40 MG in DEXTROSE 5% 100 ML IV SCH ×4 (00:59→18:45)
--- NOTE | 2019-02-23 01:15 | Critical Care Consultation ---
Date of Consultation February 23, 2019 Assessment & Plan (1) UGIB (upper gastrointestinal bleed): Reason Critically Ill: 78-year-old male with upper GI bleed, status post EGD with clips x2 for GE ulcer Neuro - Sedation: Propofol Cardiac - HTN/HLDcontinue home meds when appropriate, n.p.o. for now -Currently hemodynamically stable -Arterial line inserted for continuous BP monitoring given potential for rapid change in hemodynamics if rebleed Respiratory - Patient remains intubated following EGD with plan to leave intubated overnight given patient had multiple large blood clots in the fundus -Current vent settings AC VC 12/4 50/5/40 percent, ABG pending -ETT 7.5, 22 cm at the lip -Continuous pulse ox -No history respiratory disease, expect patient to wean from vent without issue when appropriate -HOB greater than 30 degrees, unable to insert NG tube for lavage secondary to location of GI ulcer GI - Upper GI bleedpatient presented to the emergency department with complaints of melena x2 days -no obvious bleeding on CT, inguinal hernia without evidence of strangulation -Patient had episode of hematemesis in ED and temporarily lost consciousness, transfused with 2 units RBCs -Patient was emergently taken to the OR for EGD, now status post clip x2 and epi injection for esophageal ulcer and GE junction -Per GI, patient to remain intubated overnight, no NG tube, n.p.o. -Continue Protonix drip -Follow GI recommendations RENAL/LYTES - CKDhistory of renal cell carcinoma with nephrectomy -Patient currently has single kidney -Creatinine consistent with prior admissions -Continue IV fluids while n.p.o. -Monitor creatinine routinely -Avoid nephrotoxins - Quintana insertedstrict I's and O's ENDO - No history of thyroid disease or diabetes -ICU hyperglycemic protocol HEME - Patient currently has received 2 units RBCs, patient currently hemodynamically stable, will treat check H&H following second unit completion -Goal hemoglobin greater than 7.0, will trend for drops, currently trending H&H -See GI for management of GI ulcer/source of hemorrhage -Monitor hemodynamics closely for evidence of rebleed ID - No indication for infection at this time LINES/IV ACCESS - Peripheral IVs, A-line, ETT DVT PROPHYLAXIS - SCDs, no anticoagulation as patient is admitted for GI bleed I have personally spent 45 minutes of critical care time in the direct management of this patient. This is a life/limb threatening event. This includes time spent evaluating patient, direct bedside care, chart review, placing orders, interpretation of diagnostic studies, discussion with consultants, patient, and family members, as well as other required patient management activities. This time is exclusive of all separately billable procedures, and teaching time and separate from and in addition to any other critical care service time. Thank you for allowing us to participate in the care of this patient. Please refer to my attending physician's documentation for any further recommendations. (2) Adenocarcinoma of prostate: (3) Hyperlipidemia: (4) Hypertension: (5) Chronic kidney disease (CKD), stage III (moderate): (6) Renal cell carcinoma: (7) Solitary kidney, acquired: Supervising Physician Co-Signing Physician Notes I did see the patient this morning. He is doing well on spontaneous breathing trial. He has had no significant signs of bleeding at this time. His hemoglobin has remained stable. We will go ahead and proceed with extubation. Continue to monitor hemoglobin every 4 hours for the next 24 hours. History of Present Illness Attending Physician: Heri Rangel MD History of Present Illness Mr. Avila is a 78-year-old male with past medical history of prostate CA, renal cell carcinoma with nephrectomy, CKD stage III who presented to the emergency department with complaints of fatigue and dizziness and melena x2 days. Patient was found to be anemic with hemoglobin 9 and was being admitted for suspected GI bleed. Patient had event in the emergency department where he vomited large amount of hematemesis and temporarily lost consciousness. GI was consulted and patient was taken to the OR for emergent EGD. EGD revealed esophageal ulcer at GE junction which was treated with epinephrine injection and clips x2 placed. Patient presents to the ICU left intubated with plan to leave intubated overnight. Patient currently receiving second unit RBCs. Patient to remain in ICU for now for further management. Allergies Allergy/AdvReac Type Severity Reaction Status Date / Time Penicillins Allergy Unknown Verified 02/22/19 17:52 Home Medications Home Medications Medication Instructions Recorded Confirmed Type aspirin 81 mg tablet,delayed 81 mg PO DAILY 09/09/18 02/22/19 History release alfuzosin 10 mg tablet,extended 10 mg PO DAILY #90 tab 10/07/18 02/22/19 Rx release 24 hr bisacodyl 5 mg tablet,delayed 5 mg PO DAILY PRN 12/28/18 02/22/19 History release losartan 25 mg PO DAILY 02/22/19 02/22/19 History Patient History Medical History Adenocarcinoma of prostate (Resolved) Chronic kidney disease (CKD), stage III (moderate) (Chronic) Hyperlipidemia (Chronic) Hypertension (Chronic) Impaired fasting glucose (Chronic) Renal cell carcinoma (Resolved) Solitary kidney, acquired (Chronic) Surgical History H/O inguinal hernia repair H/O right nephrectomy Family History Father Prostate cancer Mother Breast cancer Social History Preferred Language: Grenadian Communication Ability: Impaired Hearing Ability: Use of Hearing Aid Etl [employer] Architect Required: No Beliefs That Will Affect Care: None marital status: Single Current Living Situation: Alone current occupational status: retired Feels Safe at Home: Yes Smoking Status: Unknown if ever smoked Dental Care, Regularly: No Seatbelt Use: always Sunscreen Use: Yes Review of Systems Review of Systems: Unobtainable due to endotracheal tube and Unobtainable due to reduced consciousness Physical Exam Constitutional: Sedated Eyes: PERRL, conjunctivae normal, anicteric sclerae ENMT: external ear and nose normal, oropharynx normal Neck: trachea midline, no thyromegaly Respiratory: normal respiratory effort, lungs clear to auscultation Cardiovascular: RRR, no murmur, no edema Heart Sounds: normal S1 and normal S2 Vessels: no JVD Extremities: normal capillary refill Gastrointestinal (Abdomen): normal bowel sounds, soft, nontender, no hepatosplenomegaly Skin: no rashes, warm and dry Neurologic: Unable to assess Psychiatric: Unable to assess Genitourinary: Quintana catheter present Results & Data Vital Signs (Past 12 Hours) Vital Signs Temp Pulse Pulse Pulse Resp BP BP 02/23/19 00:43 36.5 C 110 H 16 153/77 H 02/23/19 00:40 114 H 16 155/89 H 02/23/19 00:30 109 H 102 H 16 132/72 02/23/19 00:22 36.5 C 97 H 20 112/61 02/22/19 23:00 94 H 22 129/68 02/22/19 22:30 91 H 23 142/63 H 02/22/19 22:15 84 28 H 145/67 H 02/22/19 22:00 87 22 150/69 H 02/22/19 21:49 87 26 H 132/57 L 02/22/19 21:35 85 24 139/63 02/22/19 21:33 97 H 22 98/62 L 02/22/19 21:20 103 H 22 112/62 02/22/19 19:40 89 20 02/22/19 19:33 90 18 129/79 02/22/19 18:35 83 20 02/22/19 16:39 02/22/19 15:28 36.8 C 105 H 20 125/71 BP Pulse Ox 02/23/19 00:43 97 02/23/19 00:40 97 02/23/19 00:30 100 02/23/19 00:22 100 02/22/19 23:00 99 02/22/19 22:30 99 02/22/19 22:15 99 02/22/19 22:00 99 02/22/19 21:49 96 02/22/19 21:35 95 02/22/19 21:33 02/22/19 21:20 98 02/22/19 19:40 99 02/22/19 19:33 99 02/22/19 18:35 142/80 H 97 02/22/19 16:39 97 02/22/19 15:28 99 Coding Level of Care Code Critical Care 1st 30-74 mins Diagnoses UGIB (upper gastrointestinal bleed) K92.2 Adenocarcinoma of prostate C61 Hyperlipidemia E78.5 Hypertension I10 Chronic kidney disease (CKD), stage III (moderate) N18.3 Renal cell carcinoma C64.9 Solitary kidney, acquired Z90.5
--- NOTE | 2019-02-23 01:15 | Procedure Note ---
Procedure Note Date of Service February 23, 2019 Note ARTERIAL LINE PROCEDURE NOTE: Procedure: Arterial Line Placement Attending: Dr. Carr Provider: ELODIA Garcia Indication: Monitoring on Pressors Anesthesia: None Line placed emergently, consent implied. A time-out was completed verifying correct patient, procedure, site, positioning, and implant(s) or special equipment if applicable. Allens test was performed to ensure adequate perfusion. Patients left wrist was prepped and draped in the usual sterile fashion. Ultrasound guidance was used to aid needle placement. A 20g Arrow arterial line was introduced into the left radial artery. Catheter was threaded, and the needle was removed with appropriate blood return. Good waveform was observed. The patient tolerated the procedure well. Confirmation of placement with ultrasound. Blood Loss: Minimal Complications: None Procedural Ultrasound Guidance: Procedure Date: 02/23/2019 Indication: Arterial line placement Attending: Dr. Carr Provider: ELODIA Garcia Artery Identified: YES Line confirmed in Artery with ultrasound: Yes Complications: NONE Patient tolerated procedure: WELL Coding
[2019-02-23 01:44] LABS: iSTAT Arterial Blood Gas HCO3 18 meg/L (19-24); iSTAT Arterial Blood Gas pCO2 40 mmHg (35-46); iSTAT Arterial Blood Gas pH 7.25 (7.35-7.45); iSTAT Arterial Blood Gas pO2 55 mmHg (80-95); iSTAT Carbon Dioxide 19 mEq/l (24-31); iSTAT FiO2 40 %; iSTAT Site Art Line
[2019-02-23] MEDS ORDERED: INFLUENZA Vaccine HIGH DOSE 65+yrs 0.5 mL Syr IM ONE (01:45)
[2019-02-23] MEDS ORDERED: PNEUMOCOCCAL Polysaccharide Vaccine 25mcg/0.5mL vial/Syr IM ONE (01:45)
[2019-02-23] MEDS ORDERED: fentaNYL citrate 100 MCG/2 ML VIAL IV STA (01:50)
[2019-02-23] MEDS ORDERED: fentaNYL citrate 100 MCG/2 ML VIAL ONE (01:52)
[2019-02-23 01:53] LABS: Troponin I < 0.015 ng/ml (0-0.045)
[2019-02-23] MEDS ORDERED: fentaNYL DRIP 1,250 MCG/250 ML BAG IV SCH (01:55)
[2019-02-23] MEDS ORDERED: fentaNYL citrate 100 MCG/2 ML VIAL IV PRN (01:55)
[2019-02-23 02:23] LABS: Hemoglobin 9.2 g/dL (14.0-18.0)
[2019-02-23 04:41] LABS: Basophils # (auto) 0.01 K/uL (0-0.2); Basophils % (auto) 0.1 %; Hemoglobin 9.5 g/dL (14.0-18.0); Immature Granulocytes # (auto) 0.07 K/uL (0.00-0.02); Immature Granulocytes % (auto) 0.4 %; Lymphocytes # (auto) 0.99 K/uL (1.2-3.4); Lymphocytes % (auto) 6.2 %; Mean Corpuscular Hemoglobin 33.1 pg (25-34); Mean Corpuscular Hgb Conc 35.2 g/dL (32-36); Mean Corpuscular Volume 94.1 fL (80-100); Mean Platelet Volume 9.6 fL (7.4-10.4); Monocytes # (auto) 0.86 K/uL (0.11-0.59); Monocytes % (auto) 5.4 %; Neutrophils # (auto) 13.98 K/uL (1.4-6.5); Neutrophils % (auto) 87.9 %; Platelet Count 215 K/uL (130-400); RDW Coefficient of Variation 14.2 % (11.5-14.5); RDW Standard Deviation 47.8 fL (36.4-46.3); Red Blood Count 2.87 M/uL (4.7-6.1); White Blood Count 15.91 K/uL (4.8-10.8)
[2019-02-23 05:07] LABS: Albumin Globulin Ratio 0.9 (0.9-2); Albumin Level 2.3 gm/dl (3.4-5.0); Bilirubin,Total 0.6 mg/dl (0.2-1); Calcium 6.7 mg/dl (8.5-10.1); Creatinine Clr Calc Pharmacy 34.5 ml/min; Est GFR (African American) 47.1; Est GFR (Non-African American) 40.6; Globulin 2.5 gm/dl (2.5-4.0); Magnesium 1.9 mg/dl (1.8-2.4); Phosphorus 2.1 mg/dl (2.5-4.9); Potassium 4.7 mmol/L (3.5-5.1); Total Protein 4.8 gm/dl (6.4-8.2)
[2019-02-23 05:27] LABS: iSTAT Arterial Blood Gas HCO3 16 meg/L (19-24); iSTAT Arterial Blood Gas pCO2 30 mmHg (35-46); iSTAT Arterial Blood Gas pH 7.35 (7.35-7.45); iSTAT Arterial Blood Gas pO2 139 mmHg (80-95); iSTAT Carbon Dioxide 17 mEq/l (24-31); iSTAT FiO2 50 %; iSTAT Site Art Line
[2019-02-23] MEDS ORDERED: CALCIUM GLUCONATE 10% 1,000 MG in SODIUM CHLORIDE 0.9% 50 ML IV STA (05:35)
[2019-02-23] MEDS: LACTATED RINGER'S 1,000 ML IV SCH ×2 (06:15→18:45)
--- NOTE | 2019-02-23 06:41 | XRay Report ---
XR chest 1V portable CLINICAL HISTORY: Respiratory failure COMPARISON STUDY: 09/19/2012 FINDINGS: There is an endotracheal tube 4.4 cm above the neha. The heart is at the upper limits of normal in size. There is a calcified left midlung zone granuloma. There is elevation of interstitium right greater than left. Diagnostic considerations include asymmetric edema versus bilateral infectio us/inflammatory process. Clinical and radiographic follow-up is recommended.[ IMPRESSION: 1. Endotracheal tube 4.4 cm above the neha 2. Asymmetric elevation of interstitium. Diagnostic considerations include asymmetric edema versus a bilateral infectious/inflammatory process. Clinical and radiographic follow-up is recommended. ACT 112: Negative or not required by law. Electronically signed by: Dayday Farr M.D. 02/23/2019 6:40 AM
[2019-02-23 07:10] LABS: iSTAT Creatinine 1.7 mg/dl (0.6-1.3); iSTAT Hemoglobin 5.8 g/dl (14.0-18.0); iSTAT Ionized Calcium 1.09 mmol/l (1.12-1.32); iSTAT Potassium 3.7 mEq/L (3.3-5.0)
--- NOTE | 2019-02-23 07:49 | Anesthesiology Progress Note ---
Date of Service February 23, 2019 Anesthesia Post Procedure Vital Signs Vital Signs: Temp Pulse Pulse Pulse Resp BP BP 02/23/19 07:24 96 H 16 02/23/19 06:27 100 H 98/57 L 02/23/19 06:25 95 H 103/58 L 02/23/19 06:13 104 H 92/56 L 02/23/19 05:57 104 H 108/56 L 02/23/19 05:55 102 H 96/56 L 02/23/19 05:50 101 H 101/61 02/23/19 05:42 101 H 100/54 L 02/23/19 05:27 105 H 102/57 L 02/23/19 05:14 109 H 85/49 L 02/23/19 05:08 109 H 16 02/23/19 04:57 101 H 113/65 02/23/19 04:42 102 H 108/62 02/23/19 04:27 100 H 121/68 02/23/19 04:12 102 H 99/62 L 02/23/19 03:57 36.5 C 101 H 128/67 02/23/19 03:42 96 H 116/58 L 02/23/19 03:27 93 H 115/67 02/23/19 03:12 91 H 111/64 02/23/19 02:57 91 H 90/60 L 02/23/19 02:42 90 106/63 02/23/19 02:28 89 98/55 L 02/23/19 02:26 91 H 24 02/23/19 02:13 96 H 84/33 L 02/23/19 02:10 101 H 86/56 L 02/23/19 01:57 90 80/42 L 02/23/19 01:54 101 H 87/56 L 02/23/19 01:43 105 H 93/60 L 02/23/19 01:36 102 H 107/56 L 02/23/19 01:27 102 H 92/51 L 02/23/19 01:21 100 H 108/54 L 02/23/19 01:12 111 H 136/67 02/23/19 00:56 109 H 153/77 H 02/23/19 00:51 112 H 154/82 H 02/23/19 00:45 117 H 157/86 H 02/23/19 00:43 36.5 C 110 H 16 153/77 H 02/23/19 00:40 114 H 114 H 16 155/89 H 155/89 H 02/23/19 00:30 109 H 102 H 16 132/72 02/23/19 00:22 36.5 C 97 H 20 112/61 02/22/19 23:00 94 H 22 129/68 02/22/19 22:30 91 H 23 142/63 H 02/22/19 22:15 84 28 H 145/67 H 02/22/19 22:00 87 22 150/69 H 02/22/19 21:49 87 26 H 132/57 L 02/22/19 21:35 85 24 139/63 02/22/19 21:33 97 H 22 98/62 L 02/22/19 21:20 103 H 22 112/62 02/22/19 19:40 89 20 02/22/19 19:33 90 18 129/79 02/22/19 18:35 83 20 02/22/19 16:39 02/22/19 15:28 36.8 C 105 H 20 125/71 BP Pulse Ox 02/23/19 07:24 99 02/23/19 06:27 100 02/23/19 06:25 100 02/23/19 06:13 100 02/23/19 05:57 100 02/23/19 05:55 100 02/23/19 05:50 100 02/23/19 05:42 98 02/23/19 05:27 99 02/23/19 05:14 100 02/23/19 05:08 100 02/23/19 04:57 98 02/23/19 04:42 100 02/23/19 04:27 100 02/23/19 04:12 100 02/23/19 03:57 99 02/23/19 03:42 99 02/23/19 03:27 100 02/23/19 03:12 100 02/23/19 02:57 100 02/23/19 02:42 100 02/23/19 02:28 100 02/23/19 02:26 96 02/23/19 02:13 98 02/23/19 02:10 100 02/23/19 01:57 98 02/23/19 01:54 97 02/23/19 01:43 98 02/23/19 01:36 97 02/23/19 01:27 91 02/23/19 01:21 94 02/23/19 01:12 99 02/23/19 00:56 97 02/23/19 00:51 97 02/23/19 00:45 97 02/23/19 00:43 97 02/23/19 00:40 93 02/23/19 00:30 100 02/23/19 00:22 100 02/22/19 23:00 99 02/22/19 22:30 99 02/22/19 22:15 99 02/22/19 22:00 99 02/22/19 21:49 96 02/22/19 21:35 95 02/22/19 21:33 02/22/19 21:20 98 02/22/19 19:40 99 02/22/19 19:33 99 02/22/19 18:35 142/80 H 97 02/22/19 16:39 97 02/22/19 15:28 99 Transfer of Care Handoff Completed per policy Notes Mental Status: see notes below Patient Amnestic to Procedure: Yes Nausea / Vomiting: adequately controlled Pain: adequately controlled Airway Patency, RR, SpO2: stable & adequate BP & HR: stable & adequate Hydration State: stable & adequate Anesthetic Complications: no major complications apparent Notes: Bleeding vessel in esophageal ulcer, rebled during procedure. Given the high risk of rebleed again, the patient was taken intubated, sedated, and paralyzed to the ICU. Detailed handoff was given to the ICU nurse practitioner.
[2019-02-23] MEDS ORDERED: ALFUZOSIN HCL 10 MG TAB PO SCH (09:00)
[2019-02-23 10:13] LABS: Hematocrit (blood only) 25.7 % (42-52); Mean Corpuscular Volume 94.1 fL (80-100); Mean Platelet Volume 9.8 fL (7.4-10.4); Platelet Count 190 K/uL (130-400); RDW Coefficient of Variation 14.7 % (11.5-14.5); RDW Standard Deviation 49.6 fL (36.4-46.3); Red Blood Count 2.73 M/uL (4.7-6.1); White Blood Count 17.52 K/uL (4.8-10.8)
--- NOTE | 2019-02-23 10:41 | Anesthesiology Progress Note ---
Date of Service February 23, 2019 Anesthesia Post Procedure Vital Signs Vital Signs: Temp Pulse Pulse Pulse Resp BP BP 02/23/19 10:15 112 H 21 02/23/19 10:00 113 H 24 02/23/19 09:45 108 H 21 02/23/19 09:31 111 H 29 H 02/23/19 09:15 105 H 02/23/19 09:13 107 H 122/66 02/23/19 09:00 105 H 02/23/19 08:58 108 H 109/77 02/23/19 08:45 101 H 02/23/19 08:43 99 H 117/68 02/23/19 08:30 99 H 02/23/19 08:28 100 H 112/63 02/23/19 08:15 97 H 02/23/19 08:13 95 H 93/55 L 02/23/19 08:00 93 H 02/23/19 07:57 94 H 95/51 L 02/23/19 07:45 94 H 02/23/19 07:43 94 H 83/48 L 02/23/19 07:30 95 H 02/23/19 07:27 95 H 84/50 L 02/23/19 07:24 96 H 16 02/23/19 07:15 96 H 02/23/19 07:12 94 H 87/51 L 02/23/19 07:00 95 H 02/23/19 06:57 96 H 90/52 L 02/23/19 06:45 98 H 02/23/19 06:27 100 H 98/57 L 02/23/19 06:25 95 H 103/58 L 02/23/19 06:13 104 H 92/56 L 02/23/19 05:57 104 H 108/56 L 02/23/19 05:55 102 H 96/56 L 02/23/19 05:50 101 H 101/61 02/23/19 05:42 101 H 100/54 L 02/23/19 05:27 105 H 102/57 L 02/23/19 05:14 109 H 85/49 L 02/23/19 05:08 109 H 16 02/23/19 04:57 101 H 113/65 02/23/19 04:42 102 H 108/62 02/23/19 04:27 100 H 121/68 02/23/19 04:12 102 H 99/62 L 02/23/19 03:57 36.5 C 101 H 128/67 02/23/19 03:42 96 H 116/58 L 02/23/19 03:27 93 H 115/67 02/23/19 03:12 91 H 111/64 02/23/19 02:57 91 H 90/60 L 02/23/19 02:42 90 106/63 02/23/19 02:28 89 98/55 L 02/23/19 02:26 91 H 24 02/23/19 02:13 96 H 84/33 L 02/23/19 02:10 101 H 86/56 L 02/23/19 01:57 90 80/42 L 02/23/19 01:54 101 H 87/56 L 02/23/19 01:43 105 H 93/60 L 02/23/19 01:36 102 H 107/56 L 02/23/19 01:27 102 H 92/51 L 02/23/19 01:21 100 H 108/54 L 02/23/19 01:12 111 H 136/67 02/23/19 00:56 109 H 153/77 H 02/23/19 00:51 112 H 154/82 H 02/23/19 00:45 117 H 157/86 H 02/23/19 00:43 36.5 C 110 H 16 153/77 H 02/23/19 00:40 114 H 114 H 16 155/89 H 155/89 H 02/23/19 00:30 109 H 102 H 16 132/72 02/23/19 00:22 36.5 C 97 H 20 112/61 02/22/19 23:00 94 H 22 129/68 02/22/19 22:30 91 H 23 142/63 H 02/22/19 22:15 84 28 H 145/67 H 02/22/19 22:00 87 22 150/69 H 02/22/19 21:49 87 26 H 132/57 L 02/22/19 21:35 85 24 139/63 02/22/19 21:33 97 H 22 98/62 L 02/22/19 21:20 103 H 22 112/62 02/22/19 19:40 89 20 02/22/19 19:33 90 18 129/79 02/22/19 18:35 83 20 01/06/20 16:39 02/22/19 15:28 36.8 C 105 H 20 125/71 BP Pulse Ox 02/23/19 10:15 94 02/23/19 10:00 95 02/23/19 09:45 94 02/23/19 09:31 95 02/23/19 09:15 99 02/23/19 09:13 98 02/23/19 09:00 98 02/23/19 08:58 94 02/23/19 08:45 100 02/23/19 08:43 100 02/23/19 08:30 100 02/23/19 08:28 100 02/23/19 08:15 100 02/23/19 08:13 100 02/23/19 08:00 99 02/23/19 07:57 99 02/23/19 07:45 99 02/23/19 07:43 99 02/23/19 07:30 99 02/23/19 07:27 98 02/23/19 07:24 99 02/23/19 07:15 99 02/23/19 07:12 100 02/23/19 07:00 99 02/23/19 06:57 99 02/23/19 06:45 99 02/23/19 06:27 100 02/23/19 06:25 100 02/23/19 06:13 100 02/23/19 05:57 100 02/23/19 05:55 100 02/23/19 05:50 100 02/23/19 05:42 98 02/23/19 05:27 99 02/23/19 05:14 100 02/23/19 05:08 100 02/23/19 04:57 98 02/23/19 04:42 100 02/23/19 04:27 100 02/23/19 04:12 100 02/23/19 03:57 99 02/23/19 03:42 99 02/23/19 03:27 100 02/23/19 03:12 100 02/23/19 02:57 100 02/23/19 02:42 100 02/23/19 02:28 100 02/23/19 02:26 96 02/23/19 02:13 98 02/23/19 02:10 100 02/23/19 01:57 98 02/23/19 01:54 97 02/23/19 01:43 98 02/23/19 01:36 97 02/23/19 01:27 91 02/23/19 01:21 94 02/23/19 01:12 99 02/23/19 00:56 97 02/23/19 00:51 97 02/23/19 00:45 97 02/23/19 00:43 97 02/23/19 00:40 93 02/23/19 00:30 100 02/23/19 00:22 100 02/22/19 23:00 99 02/22/19 22:30 99 02/22/19 22:15 99 02/22/19 22:00 99 02/22/19 21:49 96 02/22/19 21:35 95 02/22/19 21:33 02/22/19 21:20 98 02/22/19 19:40 99 02/22/19 19:33 99 02/22/19 18:35 142/80 H 97 02/22/19 16:39 97 02/22/19 15:28 99 Notes Patient Amnestic to Procedure: Yes Nausea / Vomiting: adequately controlled Pain: adequately controlled Airway Patency, RR, SpO2: see Notes below (intubated and mechanically ventilated) BP & HR: stable & adequate Anesthetic Complications: no major complications apparent Notes: patient remains sedated and ventilated. Arousable to cooperate with evaluation.
--- NOTE | 2019-02-23 12:31 | Gastroenterology Progress Note ---
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 Recs: 1. complete 72 hours of protonix drip, then protonix 40 mg BID thereafter for 3 months 2. repeat EGD in 3 months 3. if hgb remains stable can advance to clear liquid diet tonight 4.supportive care, IVFs 5.follow up in the office after discharge rest as per primary team Subjective patient extubated today, awake and alert and feels well, asymptomatic at this time. EGD last night showed a GE junction ulcer with adherent clot, treated with epinephrine and endoclips succesfully. hgb improving, around 9 this morning. currently NPO. Review of Systems Constitutional: no fever and no chills Respiratory: no cough, no dyspnea and no dyspnea on exertion Cardiovascular: no chest pain and no dyspnea Gastrointestinal: as per Subjective / HPI Psychiatric: no depression and no anxiety Physical Exam Constitutional: WD/WN, vitals as above Respiratory: normal respiratory effort, lungs clear to auscultation Cardiovascular: RRR, no murmur, no edema Gastrointestinal (Abdomen): normal bowel sounds, soft, nontender, no hepatosplenomegaly Musculoskeletal: no lower extremity edema Psychiatric: A+Ox3, euthymic affect Results & Data Vital Signs (Past 12 Hours) Vital Signs Temp Pulse Pulse Resp BP BP Pulse Ox 02/23/19 11:42 112 H 25 H 107/58 L 92 02/23/19 11:30 115 H 23 93 02/23/19 11:27 113 H 25 H 117/65 93 02/23/19 11:15 115 H 17 94 02/23/19 11:12 112 H 29 H 119/66 94 02/23/19 11:00 114 H 22 91 02/23/19 10:57 112 H 22 124/60 95 02/23/19 10:45 116 H 18 93 02/23/19 10:30 113 H 21 95 02/23/19 10:15 112 H 21 94 02/23/19 10:00 113 H 24 95 02/23/19 09:45 108 H 21 94 02/23/19 09:31 111 H 29 H 95 02/23/19 09:15 105 H 99 02/23/19 09:13 107 H 122/66 98 02/23/19 09:00 105 H 98 02/23/19 08:58 108 H 109/77 94 02/23/19 08:45 101 H 100 02/23/19 08:43 99 H 117/68 100 02/23/19 08:30 99 H 100 02/23/19 08:28 100 H 112/63 100 02/23/19 08:15 97 H 100 02/23/19 08:13 95 H 93/55 L 100 02/23/19 08:00 93 H 99 02/23/19 07:57 94 H 95/51 L 99 02/23/19 07:45 94 H 99 02/23/19 07:43 94 H 83/48 L 99 02/23/19 07:30 95 H 99 02/23/19 07:27 95 H 84/50 L 98 02/23/19 07:24 96 H 16 99 02/23/19 07:15 96 H 99 02/23/19 07:12 94 H 87/51 L 100 02/23/19 07:00 95 H 99 02/23/19 06:57 96 H 90/52 L 99 02/23/19 06:45 98 H 99 02/23/19 06:27 100 H 98/57 L 100 02/23/19 06:25 95 H 103/58 L 100 02/23/19 06:13 104 H 92/56 L 100 02/23/19 05:57 104 H 108/56 L 100 02/23/19 05:55 102 H 96/56 L 100 02/23/19 05:50 101 H 101/61 100 02/23/19 05:42 101 H 100/54 L 98 02/23/19 05:27 105 H 102/57 L 99 02/23/19 05:14 109 H 85/49 L 100 02/23/19 05:08 109 H 16 100 02/23/19 04:57 101 H 113/65 98 02/23/19 04:42 102 H 108/62 100 02/23/19 04:27 100 H 121/68 100 02/23/19 04:12 102 H 99/62 L 100 02/23/19 03:57 36.5 C 101 H 128/67 99 02/23/19 03:42 96 H 116/58 L 99 02/23/19 03:27 93 H 115/67 100 02/23/19 03:12 91 H 111/64 100 02/23/19 02:57 91 H 90/60 L 100 02/23/19 02:42 90 106/63 100 02/23/19 02:28 89 98/55 L 100 02/23/19 02:26 91 H 24 96 02/23/19 02:13 96 H 84/33 L 98 02/23/19 02:10 101 H 86/56 L 100 02/23/19 01:57 90 80/42 L 98 02/23/19 01:54 101 H 87/56 L 97 02/23/19 01:43 105 H 93/60 L 98 02/23/19 01:36 102 H 107/56 L 97 02/23/19 01:27 102 H 92/51 L 91 02/23/19 01:21 100 H 108/54 L 94 02/23/19 01:12 111 H 136/67 99 02/23/19 00:56 109 H 153/77 H 97 02/23/19 00:51 112 H 154/82 H 97 02/23/19 00:45 117 H 157/86 H 97 02/23/19 00:43 36.5 C 110 H 16 153/77 H 97 02/23/19 00:40 114 H 114 H 16 155/89 H 155/89 H 93 02/23/19 00:30 109 H 102 H 16 132/72 100 PG Care Time/CCT Total # of Minutes Spent Total Time Spent with Patient: Total time spent is greater than 50% in move coordinator rdination of care (as documented) at patient's floor/unit and/or counseling patient:
--- NOTE | 2019-02-23 13:42 | Hospitalist Progress Note ---
Date of Service February 23, 2019 Assessment & Plan (1) UGIB (upper gastrointestinal bleed): due to esophageal ulcer emergent EGD on 02/22 at night due to hematemesis and drop in Hb, hypotension clips placed on ulcer, hemostasis achieved protonix drip, no NG/OG should be placed, still NPO diet per GI at this point monitor closely for any signs of rebleeding transfuse for Hb < 7 or if hypotensive with melena, hematemesis (2) Anemia: acute blood loss anemia Hb hit low of 5.8 transfused several units PRBC, Hb up to 9.0 today blood pressure stable (3) Chronic kidney disease (CKD), stage III (moderate): 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 Carr, patient stable to go to PCU reviewed labs, Hb stable at 9.0, Cr stable at 1.6 Review of Systems Review of Systems: All systems reviewed & are unremarkable except as noted in HPI & below Constitutional: + fatigue and + weakness; no fever Respiratory: no cough and no dyspnea Cardiovascular: no chest pain, no palpitations, no syncope and no edema Gastrointestinal: + hematemesis and + melena; no abdominal pain, no nausea, no vomiting, no constipation and no diarrhea/loose stools Physical Exam Constitutional: WD/WN, vitals as above Eyes: PERRL, conjunctivae normal, anicteric sclerae ENMT: external ear and nose normal, oropharynx normal Neck: trachea midline, no thyromegaly Respiratory: normal respiratory effort, lungs clear to auscultation Cardiovascular: RRR, no murmur, no edema Gastrointestinal (Abdomen): normal bowel sounds, soft, nontender, no hepatosplenomegaly Musculoskeletal: no cyanosis or clubbing, extremities motor strength 5/5 Skin: no rashes, warm and dry Neurologic: patellar DTR's 2+ bilat, sensation intact and PERRL, EOMI, accommodation nl, no face palsy, no dysarthria Psychiatric: A+Ox3, euthymic affect Lymphatic: no cervical or axillary lymphadenopathy Results & Data Vital Signs (Past 12 Hours) Vital Signs Temp Pulse Resp BP Pulse Ox 02/23/19 13:00 105 H 20 94 02/23/19 12:58 107 H 22 111/60 93 02/23/19 12:45 104 H 19 92 02/23/19 12:43 105 H 23 112/61 91 02/23/19 12:30 107 H 23 92 02/23/19 12:27 107 H 23 123/63 92 02/23/19 12:15 106 H 21 91 02/23/19 12:12 105 H 22 103/58 L 91 02/23/19 12:00 113 H 26 H 92 02/23/19 11:57 111 H 21 105/58 L 92 02/23/19 11:45 113 H 24 92 02/23/19 11:43 113 H 29 H 93 02/23/19 11:42 112 H 25 H 107/58 L 92 02/23/19 11:30 115 H 23 93 02/23/19 11:27 113 H 25 H 117/65 93 02/23/19 11:15 115 H 17 94 02/23/19 11:12 112 H 29 H 119/66 94 02/23/19 11:00 114 H 22 91 02/23/19 10:57 112 H 22 124/60 95 02/23/19 10:45 116 H 18 93 02/23/19 10:30 113 H 21 95 02/23/19 10:15 112 H 21 94 02/23/19 10:00 113 H 24 95 02/23/19 09:45 108 H 21 94 02/23/19 09:31 111 H 29 H 95 02/23/19 09:15 105 H 99 02/23/19 09:13 107 H 122/66 98 02/23/19 09:00 105 H 98 02/23/19 08:58 108 H 109/77 94 02/23/19 08:45 101 H 100 02/23/19 08:43 99 H 117/68 100 02/23/19 08:30 99 H 100 02/23/19 08:28 100 H 112/63 100 02/23/19 08:15 97 H 100 02/23/19 08:13 95 H 93/55 L 100 02/23/19 08:00 93 H 99 02/23/19 07:57 94 H 95/51 L 99 02/23/19 07:45 94 H 99 02/23/19 07:43 94 H 83/48 L 99 02/23/19 07:30 95 H 99 02/23/19 07:27 95 H 84/50 L 98 02/23/19 07:24 96 H 16 99 02/23/19 07:15 96 H 99 02/23/19 07:12 94 H 87/51 L 100 02/23/19 07:00 95 H 99 02/23/19 06:57 96 H 90/52 L 99 02/23/19 06:45 98 H 99 02/23/19 06:27 100 H 98/57 L 100 02/23/19 06:25 95 H 103/58 L 100 02/23/19 06:13 104 H 92/56 L 100 02/23/19 05:57 104 H 108/56 L 100 02/23/19 05:55 102 H 96/56 L 100 02/23/19 05:50 101 H 101/61 100 02/23/19 05:42 101 H 100/54 L 98 02/23/19 05:27 105 H 102/57 L 99 02/23/19 05:14 109 H 85/49 L 100 02/23/19 05:08 109 H 16 100 02/23/19 04:57 101 H 113/65 98 02/23/19 04:42 102 H 108/62 100 02/23/19 04:27 100 H 121/68 100 02/23/19 04:12 102 H 99/62 L 100 02/23/19 03:57 36.5 C 101 H 128/67 99 02/23/19 03:42 96 H 116/58 L 99 02/23/19 03:27 93 H 115/67 100 02/23/19 03:12 91 H 111/64 100 02/23/19 02:57 91 H 90/60 L 100 02/23/19 02:42 90 106/63 100 02/23/19 02:28 89 98/55 L 100 02/23/19 02:26 91 H 24 96 02/23/19 02:13 96 H 84/33 L 98 02/23/19 02:10 101 H 86/56 L 100 02/23/19 01:57 90 80/42 L 98 02/23/19 01:54 101 H 87/56 L 97 02/23/19 01:43 105 H 93/60 L 98 Laboratory Results Laboratory Results - last 24 hr 02/22/19 02/22/19 02/22/19 16:34 16:37 21:45 WBC RBC Hgb POC Hgb 5.8 L* Hct POC Hct 17 L* MCV MCH MCHC RDW Std Deviation RDW Coeff of Rigo Plt Count MPV Immature Gran % (Auto) Neut % (Auto) Lymph % (Auto) Waldo % (Auto) Eos % (Auto) Baso % (Auto) Immature Gran # (Auto) Neut # (Auto) Lymph # (Auto) Waldo # (Auto) Eos # (Auto) Baso # (Auto) Sample Site POC pH POC pCO2 POC pO2 POC HCO3 POC Base Excess POC ABG O2 Sat Alok Test O2 Delivery Device POC O2 Rate Minute Ventilation POC FiO2 Tidal Volume PEEP POC Sodium 139 Sodium POC Potassium 3.7 Potassium POC Chloride 109 Chloride Carbon Dioxide POC Total CO2 18 L Anion Gap POC Anion Gap 18.0 POC BUN 34 H BUN Creatinine POC Creatinine 1.7 H Est Cr Clr Drug Dosing Est GFR ( Amer) Est GFR (Non-Af Amer) BUN/Creatinine Ratio Glucose POC Glucose POC Glucose (other) 159 H Calcium POC Ioniz Calcium Herminia 1.09 L Ionized Calcium Phosphorus Magnesium Total Bilirubin AST ALT Alkaline Phosphatase Troponin I < 0.015 Total Protein Albumin Globulin Albumin/Globulin Ratio Nasal Screen MRSA (PCR) Blood Type A Positive Antibody Screen NEGATIVE Crossmatch See Detail 02/23/19 02/23/19 02/23/19 00:40 01:30 02:16 WBC RBC Hgb 9.2 L POC Hgb Hct 27.0 L POC Hct MCV MCH MCHC RDW Std Deviation RDW Coeff of Rigo Plt Count MPV Immature Gran % (Auto) Neut % (Auto) Lymph % (Auto) Waldo % (Auto) Eos % (Auto) Baso % (Auto) Immature Gran # (Auto) Neut # (Auto) Lymph # (Auto) Waldo # (Auto) Eos # (Auto) Baso # (Auto) Sample Site Art Line POC pH 7.25 L POC pCO2 40 POC pO2 55 L POC HCO3 18 L POC Base Excess -9.0 POC ABG O2 Sat 83.0 L Alok Test NA O2 Delivery Device Ventilator POC O2 Rate 16 Minute Ventilation 7.2 POC FiO2 40 Tidal Volume 450 PEEP 5 POC Sodium Sodium POC Potassium Potassium POC Chloride Chloride Carbon Dioxide POC Total CO2 19 L Anion Gap POC Anion Gap POC BUN BUN Creatinine POC Creatinine Est Cr Clr Drug Dosing Est GFR ( Amer) Est GFR (Non-Af Amer) BUN/Creatinine Ratio Glucose POC Glucose POC Glucose (other) Calcium POC Ioniz Calcium Herminia Ionized Calcium Phosphorus Magnesium Total Bilirubin AST ALT Alkaline Phosphatase Troponin I Total Protein Albumin Globulin Albumin/Globulin Ratio Nasal Screen MRSA (PCR) Negative Blood Type Antibody Screen Crossmatch 02/23/19 02/23/19 02/23/19 02:20 04:25 04:25 WBC 15.91 H RBC 2.87 L Hgb 9.5 L POC Hgb Hct 27.0 L POC Hct MCV 94.1 MCH 33.1 MCHC 35.2 RDW Std Deviation 47.8 H RDW Coeff of Rigo 14.2 Plt Count 215 MPV 9.6 Immature Gran % (Auto) 0.4 Neut % (Auto) 87.9 Lymph % (Auto) 6.2 Waldo % (Auto) 5.4 Eos % (Auto) 0.0 Baso % (Auto) 0.1 Immature Gran # (Auto) 0.07 H Neut # (Auto) 13.98 H Lymph # (Auto) 0.99 L Waldo # (Auto) 0.86 H Eos # (Auto) 0.00 Baso # (Auto) 0.01 Sample Site POC pH POC pCO2 POC pO2 POC HCO3 POC Base Excess POC ABG O2 Sat Alok Test O2 Delivery Device POC O2 Rate Minute Ventilation POC FiO2 Tidal Volume PEEP POC Sodium Sodium 141 POC Potassium Potassium 4.7 D POC Chloride Chloride 118 H Carbon Dioxide 20 L POC Total CO2 Anion Gap 3.0 POC Anion Gap POC BUN BUN 44 H Creatinine 1.62 H POC Creatinine Est Cr Clr Drug Dosing 34.5 Est GFR ( Amer) 47.1 Est GFR (Non-Af Amer) 40.6 BUN/Creatinine Ratio 27.0 H Glucose 112 H POC Glucose 178 H POC Glucose (other) Calcium 6.7 L POC Ioniz Calcium Herminia Ionized Calcium Phosphorus 2.1 L Magnesium 1.9 Total Bilirubin 0.6 AST 15 ALT 18 Alkaline Phosphatase 42 L Troponin I Total Protein 4.8 L D Albumin 2.3 L Globulin 2.5 Albumin/Globulin Ratio 0.9 Nasal Screen MRSA (PCR) Blood Type Antibody Screen Crossmatch 02/23/19 02/23/19 02/23/19 04:25 05:11 10:01 WBC 17.52 H RBC 2.73 L Hgb 9.0 L POC Hgb Hct 25.7 L POC Hct MCV 94.1 MCH 33.0 MCHC 35.0 RDW Std Deviation 49.6 H RDW Coeff of Rigo 14.7 H Plt Count 190 MPV 9.8 Immature Gran % (Auto) Neut % (Auto) Lymph % (Auto) Waldo % (Auto) Eos % (Auto) Baso % (Auto) Immature Gran # (Auto) Neut # (Auto) Lymph # (Auto) Waldo # (Auto) Eos # (Auto) Baso # (Auto) Sample Site Art Line POC pH 7.35 POC pCO2 30 L POC pO2 139 H POC HCO3 16 L POC Base Excess -9.0 POC ABG O2 Sat 99.0 H Alok Test NA O2 Delivery Device Ventilator POC O2 Rate 16 Minute Ventilation 7.2 POC FiO2 50 Tidal Volume 450 PEEP 5 POC Sodium Sodium POC Potassium Potassium POC Chloride Chloride Carbon Dioxide POC Total CO2 17 L Anion Gap POC Anion Gap POC BUN BUN Creatinine POC Creatinine Est Cr Clr Drug Dosing Est GFR ( Amer) Est GFR (Non-Af Amer) BUN/Creatinine Ratio Glucose POC Glucose POC Glucose (other) Calcium POC Ioniz Calcium Herminia Ionized Calcium 0.99 L Phosphorus Magnesium Total Bilirubin AST ALT Alkaline Phosphatase Troponin I Total Protein Albumin Globulin Albumin/Globulin Ratio Nasal Screen MRSA (PCR) Blood Type Antibody Screen Crossmatch 02/23/19 17:22 WBC 14.17 H RBC 2.59 L Hgb 8.6 L POC Hgb Hct 25.0 L POC Hct MCV 96.5 MCH 33.2 MCHC 34.4 RDW Std Deviation 52.0 H RDW Coeff of Rigo 15.2 H Plt Count 198 MPV 9.9 Immature Gran % (Auto) Neut % (Auto) Lymph % (Auto) Waldo % (Auto) Eos % (Auto) Baso % (Auto) Immature Gran # (Auto) Neut # (Auto) Lymph # (Auto) Waldo # (Auto) Eos # (Auto) Baso # (Auto) Sample Site POC pH POC pCO2 POC pO2 POC HCO3 POC Base Excess POC ABG O2 Sat Alok Test O2 Delivery Device POC O2 Rate Minute Ventilation POC FiO2 Tidal Volume PEEP POC Sodium Sodium POC Potassium Potassium POC Chloride Chloride Carbon Dioxide POC Total CO2 Anion Gap POC Anion Gap POC BUN BUN Creatinine POC Creatinine Est Cr Clr Drug Dosing Est GFR ( Amer) Est GFR (Non-Af Amer) BUN/Creatinine Ratio Glucose POC Glucose POC Glucose (other) Calcium POC Ioniz Calcium Herminia Ionized Calcium Phosphorus Magnesium Total Bilirubin AST ALT Alkaline Phosphatase Troponin I Total Protein Albumin Globulin Albumin/Globulin Ratio Nasal Screen MRSA (PCR) Blood Type Antibody Screen Crossmatch Medications Administered Current Inpatient Medications Alfuzosin HCl (Uroxatral) 10 mg PO DAILY [facility] Stop: 03/25/19 08:59 Pantoprazole Sodium 40 mg/ (Dextrose) 100 mls @ 20 mls/hr IV Q5H [facility] Stop: 03/24/19 17:14 Last Admin: 02/23/19 18:45 Dose: 20 mls/hr Documented by: Lactated Ringer's (Lr) 1,000 mls @ 80 mls/hr IV .[id number] [facility] Stop: 03/25/19 05:44 Last Admin: 02/23/19 18:45 Dose: 80 mls/hr Documented by: Ioversol (Optiray 320 125ml) 118 ml IV ONCE PRN PRN Reason: Interaction Checking Stop: 02/26/19 17:47 Last Admin: 02/22/19 17:48 Dose: 1 ml Documented by: Ondansetron HCl (Zofran) 4 mg IV Q6H PRN PRN Reason: Nausea Stop: 03/25/19 00:50 PG Care Time/CCT Total # of Minutes Spent Total Time Spent with Patient: Total time spent is greater than 50% in coordination of care (as documented) at patient's floor/unit and/or counseling patient: (1) Anemia Anemia type: unspecified type Qualified Code(s): D64.9 - Anemia, unspecified
[2019-02-23 17:56] LABS: Hemoglobin 8.6 g/dL (14.0-18.0); Mean Corpuscular Hemoglobin 33.2 pg (25-34); Mean Corpuscular Hgb Conc 34.4 g/dL (32-36); Mean Corpuscular Volume 96.5 fL (80-100); Mean Platelet Volume 9.9 fL (7.4-10.4); Platelet Count 198 K/uL (130-400); RDW Coefficient of Variation 15.2 % (11.5-14.5); Red Blood Count 2.59 M/uL (4.7-6.1); White Blood Count 14.17 K/uL (4.8-10.8)
[2019-02-24] MEDS: PANTOprazole 40 MG in DEXTROSE 5% 100 ML IV SCH ×6 (00:10→23:24)
[2019-02-24 01:31] LABS: Hematocrit (blood only) 22.9 % (42-52); Mean Corpuscular Hemoglobin 32.9 pg (25-34); Mean Corpuscular Hgb Conc 34.9 g/dL (32-36); Mean Corpuscular Volume 94.2 fL (80-100); Mean Platelet Volume 9.5 fL (7.4-10.4); Platelet Count 181 K/uL (130-400); RDW Coefficient of Variation 14.9 % (11.5-14.5); RDW Standard Deviation 50.6 fL (36.4-46.3); Red Blood Count 2.43 M/uL (4.7-6.1)
--- NOTE | 2019-02-24 03:11 | Billing Data ---
Date of Service February 24, 2019 Coding Level of Care Code Critical Care 1st - mins
[2019-02-24] MEDS: LACTATED RINGER'S 1,000 ML IV SCH ×2 (06:40→17:38)
--- NOTE | 2019-02-24 11:53 | Gastroenterology Progress Note ---
Date of Service February 24, 2019 Assessment & Plan (1) UGIB (upper gastrointestinal bleed): s/p EGD with hemostasis Recs: complete 72 hours of PPI drip advance diet if tolerates clears PPI BID for 3 months after drip EGD in 3 months follow up in GI office in 1-2 weeks rest as per primary team Subjective overnight no events, feels well and is hungry to eat. Notes some lower abdominal cramps and some dark stool but otherwise no hematochezia, nausea, hematemesis. Hgb noted to be 8. Review of Systems Constitutional: no fever and no chills Respiratory: no cough, no dyspnea and no dyspnea on exertion Cardiovascular: no chest pain and no dyspnea Gastrointestinal: as per Subjective / HPI Psychiatric: no depression and no anxiety Physical Exam Constitutional: WD/WN, vitals as above Respiratory: normal respiratory effort, lungs clear to auscultation Cardiovascular: RRR, no murmur, no edema Gastrointestinal (Abdomen): normal bowel sounds, soft, nontender, no hepatosplenomegaly Musculoskeletal: no lower extremity edema Psychiatric: A+Ox3, euthymic affect Results & Data Vital Signs (Past 12 Hours) Vital Signs Temp Pulse Pulse Resp BP BP Pulse Ox 02/24/19 07:29 84 02/24/19 07:26 36.7 C 95 H 20 131/72 96 02/24/19 03:55 36.7 C 95 H 18 126/72 96 PG Care Time/CCT Total # of Minutes Spent Total Time Spent with Patient: Total time spent is greater than 50% in coordination of care (as documented) at patient's floor/unit and/or counseling patient:
[2019-02-24 13:11] LABS: Hematocrit (blood only) 24.4 % (42-52); Hemoglobin 8.3 g/dL (14.0-18.0)
[2019-02-24 13:38] LABS: BUN Creatinine Ratio 15.6 (10-20); Calcium 7.3 mg/dl (8.5-10.1); Creatinine Clr Calc Pharmacy 33.8 ml/min; Est GFR (African American) 44.4; Est GFR (Non-African American) 38.3; Potassium 3.7 mmol/L (3.5-5.1)
--- NOTE | 2019-02-24 13:43 | Hospitalist Progress Note ---
Date of Service February 24, 2019 Assessment & Plan (1) UGIB (upper gastrointestinal bleed): due to esophageal ulcer emergent EGD on 02/22 at night due to hematemesis and drop in Hb, hypotension clips placed on ulcer, hemostasis achieved protonix drip x 72 hours which would be night on , no NG/OG should be placed clears for today, will give full liquids tonight monitor closely for any signs of rebleeding transfuse for Hb < 7 or if hypotensive no melena or hematemesis today, BP stable (2) Anemia: acute blood loss anemia Hb hit low of 5.8 transfused several units PRBC, Hb up to 9.0 02/23, down a little to 8.3 today blood pressure stable (3) Chronic kidney disease (CKD), stage III (moderate): 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 CA Cr is at baseline making adequate urine (4) Hypertension: BP stable continue to hold any home meds, need to monitor for hypotension (5) Hyperlipidemia: continue low fat diet on discharge Subjective doing well today admits that he is thirsty, told him we could start on clears Hb did drop slightly from 8.6 to 8.0 and then 8.3 today no melena, no vomiting discussed with GI, appreciate their input, protonix drip for 72 hours then BID for 3 months discussed with patient that he will be here until Friday Review of Systems Review of Systems: All systems reviewed & are unremarkable except as noted in HPI & below Constitutional: + fatigue and + weakness; no fever Respiratory: no cough and no dyspnea Cardiovascular: no chest pain and no edema Gastrointestinal: + abdominal pain (lower); no nausea, no vomiting, no constipation, no diarrhea/loose stools, no blood in stools and no melena Physical Exam Constitutional: WD/WN, vitals as above Eyes: PERRL, conjunctivae normal, anicteric sclerae ENMT: external ear and nose normal, oropharynx normal Neck: trachea midline, no thyromegaly Respiratory: normal respiratory effort, lungs clear to auscultation Cardiovascular: RRR, no murmur, no edema Gastrointestinal (Abdomen): normal bowel sounds, soft, nontender, no hepatosplenomegaly Musculoskeletal: no cyanosis or clubbing, extremities motor strength 5/5 Skin: no rashes, warm and dry Neurologic: patellar DTR's 2+ bilat, sensation intact and PERRL, EOMI, accommodation nl, no face palsy, no dysarthria Psychiatric: A+Ox3, euthymic affect Lymphatic: no cervical or axillary lymphadenopathy Results & Data Vital Signs (Past 12 Hours) Vital Signs Temp Pulse Pulse Resp BP BP Pulse Ox 02/24/19 11:50 37.0 C 96 H 20 131/72 95 02/24/19 07:29 84 02/24/19 07:26 36.7 C 95 H 20 131/72 96 02/24/19 03:55 36.7 C 95 H 18 126/72 96 Laboratory Results Laboratory Results - last 24 hr 02/22/19 02/23/19 02/24/19 16:37 17:22 01:07 WBC 14.17 H 10.20 RBC 2.59 L 2.43 L Hgb 8.6 L 8.0 L Hct 25.0 L 22.9 L MCV 96.5 94.2 MCH 33.2 32.9 MCHC 34.4 34.9 RDW Std Deviation 52.0 H 50.6 H RDW Coeff of Rigo 15.2 H 14.9 H Plt Count 198 181 MPV 9.9 9.5 Sodium Potassium Chloride Carbon Dioxide Anion Gap BUN Creatinine Est Cr Clr Drug Dosing Est GFR ( Amer) Est GFR (Non-Af Amer) BUN/Creatinine Ratio Glucose Calcium Crossmatch See Detail 02/24/19 02/24/19 12:58 12:58 WBC RBC Hgb 8.3 L Hct 24.4 L MCV MCH MCHC RDW Std Deviation RDW Coeff of Rigo Plt Count MPV Sodium 137 Potassium 3.7 D Chloride 112 H Carbon Dioxide 23 Anion Gap 2.0 L BUN 27 H Creatinine 1.70 H Est Cr Clr Drug Dosing 33.8 Est GFR ( Amer) 44.4 Est GFR (Non-Af Amer) 38.3 BUN/Creatinine Ratio 15.6 Glucose 171 H Calcium 7.3 L Crossmatch Medications Administered Current Inpatient Medications Alfuzosin HCl (Uroxatral) 10 mg PO DAILY [facility] Stop: 03/25/19 08:59 Pantoprazole Sodium 40 mg/ (Dextrose) 100 mls @ 20 mls/hr IV Q5H [facility] Stop: 03/24/19 17:14 Last Admin: 02/24/19 13:33 Dose: 20 mls/hr Documented by: Lactated Ringer's (Lr) 1,000 mls @ 80 mls/hr IV .[id number] [facility] Stop: 03/25/19 05:44 Last Admin: 02/24/19 06:40 Dose: 80 mls/hr Documented by: Ioversol (Optiray 320 125ml) 118 ml IV ONCE PRN PRN Reason: Interaction Checking Stop: 02/26/19 17:47 Last Admin: 02/22/19 17:48 Dose: 1 ml Documented by: Ondansetron HCl (Zofran) 4 mg IV Q6H PRN PRN Reason: Nausea Stop: 03/25/19 00:50 PG Care Time/CCT Total # of Minutes Spent Total Time Spent with Patient: Total time spent is greater than 50% in coordination of care (as documented) at patient's floor/unit and/or counseling patient: (1) Anemia Anemia type: unspecified type Qualified Code(s): D64.9 - Anemia, unspecified
[2019-02-25] MEDS: PANTOprazole 40 MG in DEXTROSE 5% 100 ML IV SCH ×5 (04:16→23:56)
[2019-02-25] MEDS: LACTATED RINGER'S 1,000 ML IV SCH (05:21)
[2019-02-25 06:59] LABS: Hematocrit (blood only) 22.2 % (42-52); Hemoglobin 7.8 g/dL (14.0-18.0)
[2019-02-25 07:29] LABS: Calcium 7.6 mg/dl (8.5-10.1); Creatinine Clr Calc Pharmacy 35.2 ml/min; Est GFR (African American) 46.7; Est GFR (Non-African American) 40.3; Potassium 3.7 mmol/L (3.5-5.1)
[2019-02-25 13:06] LABS: Hematocrit (blood only) 23.5 % (42-52); Hemoglobin 8.2 g/dL (14.0-18.0)
--- NOTE | 2019-02-25 16:42 | Hospitalist Progress Note ---
Date of Service February 25, 2019 Assessment & Plan (1) UGIB (upper gastrointestinal bleed): due to esophageal ulcer emergent EGD on 02/22 at night due to hematemesis and drop in Hb, hypotension clips placed on ulcer, hemostasis achieved protonix drip x 72 hours which will be this evening, change to PO Protonix in the morning advance to low residue diet today monitor closely for any signs of rebleeding, low potential for rebleed now that he is 72 hours out transfuse for Hb < 7 or if hypotensive no melena or hematemesis today, BP stable (2) Anemia: acute blood loss anemia Hb hit low of 5.8 transfused several units PRBC Hb dropped a little further to 7.8 this morning, up to 8.2 in afternoon no indication for transfusion as BP stable would transfuse if < 7 or hypotensive repeat H/H tomorrow (3) Chronic kidney disease (CKD), stage III (moderate): 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 CA Cr is at baseline at 1.6 making adequate urine (4) Hypertension: BP starting to go up slightly, 148 systolic continue to hold any home meds, consider resuming tomorrow if BP up (5) Hyperlipidemia: continue low fat diet on discharge Subjective patient continues to do well, no melena, no vomiting, no hematemesis Hb lower this AM at 7.8, repeat in the afternoon 8.2 long update with the patient's family at the bedside discussed diagnosis of the esophageal ulcer, plan to treat with protonix patient hungry, will advance diet since there is no sign of bleeding and he is nearly 72 hours out no chest pain, no dyspnea, no fever/chills, no nausea, has not moved bowels has some lower abdominal pain with cough but that is it Review of Systems Review of Systems: All systems reviewed & are unremarkable except as noted in HPI & below Physical Exam Constitutional: WD/WN, vitals as above Eyes: PERRL, conjunctivae normal, anicteric sclerae ENMT: external ear and nose normal, oropharynx normal Neck: trachea midline, no thyromegaly Respiratory: normal respiratory effort, lungs clear to auscultation Cardiovascular: RRR, no murmur, no edema Gastrointestinal (Abdomen): normal bowel sounds, soft, nontender, no hepatosplenomegaly Musculoskeletal: no cyanosis or clubbing, extremities motor strength 5/5 Skin: no rashes, warm and dry Neurologic: patellar DTR's 2+ bilat, sensation intact and PERRL, EOMI, accommodation nl, no face palsy, no dysarthria Psychiatric: A+Ox3, euthymic affect Lymphatic: no cervical or axillary lymphadenopathy Results & Data Vital Signs (Past 12 Hours) Vital Signs Temp Pulse Pulse Pulse Resp BP BP 02/25/19 16:04 36.9 C 100 H 18 132/72 02/25/19 11:35 36.4 C L 97 H 20 109/65 02/25/19 07:18 92 H 02/25/19 07:03 36.6 C 89 18 124/66 Pulse Ox 02/25/19 16:04 94 02/25/19 11:35 92 02/25/19 07:18 02/25/19 07:03 91 Laboratory Results Laboratory Results - last 24 hr 02/25/19 02/25/19 02/25/19 06:36 06:36 12:47 Hgb 7.8 L 8.2 L Hct 22.2 L 23.5 L Sodium 139 Potassium 3.7 Chloride 110 H Carbon Dioxide 24 Anion Gap 5.0 BUN 20 H Creatinine 1.63 H Est Cr Clr Drug Dosing 35.2 Est GFR ( Amer) 46.7 Est GFR (Non-Af Amer) 40.3 BUN/Creatinine Ratio 12.0 Glucose 116 H Calcium 7.6 L Medications Administered Current Inpatient Medications Alfuzosin HCl (Uroxatral) 10 mg PO DAILY [facility] Stop: 03/25/19 08:59 Pantoprazole Sodium 40 mg/ (Dextrose) 100 mls @ 20 mls/hr IV Q5H [facility] Stop: 03/24/19 17:14 Last Admin: 02/25/19 14:46 Dose: 20 mls/hr Documented by: Ioversol (Optiray 320 125ml) 118 ml IV ONCE PRN PRN Reason: Interaction Checking Stop: 02/26/19 17:47 Last Admin: 02/22/19 17:48 Dose: 1 ml Documented by: Ondansetron HCl (Zofran) 4 mg IV Q6H PRN PRN Reason: Nausea Stop: 03/25/19 00:50 PG Care Time/CCT Total # of Minutes Spent Total Time Spent with Patient: Total time spent is greater than 50% in coordination of care (as documented) at patient's floor/unit and/or counseling patient: (1) Anemia Anemia type: unspecified type Qualified Code(s): D64.9 - Anemia, unspecified
[2019-02-26] MEDS: PANTOprazole 40 MG in DEXTROSE 5% 100 ML IV SCH ×2 (04:18→08:51)
[2019-02-26 08:37] LABS: Hemoglobin 8.7 g/dL (14.0-18.0)
[2019-02-26 09:13] LABS: BUN Creatinine Ratio 10.8 (10-20); Calcium 8.3 mg/dl (8.5-10.1); Creatinine Clr Calc Pharmacy 32.1 ml/min; Est GFR (African American) 41.7; Potassium 3.5 mmol/L (3.5-5.1)
[2019-02-26] MEDS ORDERED: PANTOprazole 40 MG TAB PO SCH (09:15)
--- NOTE | 2019-02-26 10:15 | Discharge Summary ---
Date of Service February 26, 2019 Admission HPI Per Admitting Provider 78-year-old male with history of prostate cancer, renal cancer s/p right nephrectomy presents with 2 days of melena and intermittent left lower quadrant abdominal pain. He noted blood in his sputum when spitting this afternoon. He describes the left lower abdominal pain being over the region of his inguinal hernia. He states that this can hurt from time to time, but it felt sharp in nature this afternoon. It is since resolved. He denies feeling weak, fatigue or short of breath. He denies chest pain. He denies a history of peptic ulcers disease. He has had colonoscopies every 10 years without any abnormal findings. He is currently due for colonoscopy. Discharge Exam Constitutional WD/WN, vitals as above Eyes PERRL, conjunctivae normal, anicteric sclerae ENMT external ear and nose normal, oropharynx normal Neck trachea midline, no thyromegaly Respiratory normal respiratory effort, lungs clear to auscultation Cardiovascular RRR, no murmur, no edema Gastrointestinal (Abdomen) normal bowel sounds, soft, nontender, no hepatosplenomegaly Musculoskeletal no cyanosis or clubbing, extremities motor strength 5/5 Skin no rashes, warm and dry Neurologic patellar DTR's 2+ bilat, sensation intact and PERRL, EOMI, accommodation nl, no face palsy, no dysarthria Psychiatric A+Ox3, euthymic affect Lymphatic no cervical or axillary lymphadenopathy Discharge Data Allergies Allergy/AdvReac Type Severity Reaction Status Date / Time Penicillins Allergy Unknown Verified 02/22/19 17:52 Consultations 02/22/19 18:48 ED Decision to Admit Stat 02/22/19 21:46 Consult Director Religious Education Routine 02/22/19 21:55 Consult Gastroenterology Routine 02/23/19 00:51 Consult Case Management - Discharge Planning Routine Procedures Performed Operation Date: 02/22/19 23:00 Actual Procedures p Esophagogastroduodenoscopy with Hemastasis - Salbador Meeks MD Ordered Studies 02/22/19 16:23 CT abd pelvis IV con only Stat CT angio chest PE protocol Stat Hospital Course (1) UGIB (upper gastrointestinal bleed): due to esophageal ulcer emergent EGD on 02/22 at night due to hematemesis and drop in Hb, hypotension clips placed on ulcer, hemostasis achieved protonix drip x 72 hours which will be this evening, change to PO Protonix in the morning advance to low residue diet today monitor closely for any signs of rebleeding, low potential for rebleed now that he is 72 hours out transfuse for Hb < 7 or if hypotensive no melena or hematemesis today, BP stable (2) Anemia: acute blood loss anemia Hb hit low of 5.8 transfused several units PRBC Hb dropped a little further to 7.8 this morning, up to 8.2 in afternoon no indication for transfusion as BP stable would transfuse if < 7 or hypotensive repeat H/H tomorrow (3) Chronic kidney disease (CKD), stage III (moderate): 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 CA Cr is at baseline at 1.6 making adequate urine (4) Hypertension: BP starting to go up slightly, 148 systolic continue to hold any home meds, consider resuming tomorrow if BP up (5) Hyperlipidemia: continue low fat diet on discharge Discharge Plan Discharge Items Patient Disposition: Home - Self-Care Reason For Visit: GI BLEED Discharge Diagnosis: Esophageal ulcer Acute blood loss anemia due to ulcer Condition on Discharge: Good Goals: treat ulcer with Protonix improve nutrition get rest, stay well hydrated Activity: Resume your previous activity Driving/Machine Use: Resume 3 days after discharge Weightbearing: Full weightbearing Non-emergency contact: Primary Care Provider Call non-emergency contact if: you have any medication questions, your symptoms worsen and you have a fever Follow-up/Referrals: Bailey Clark MD [Primary Care Provider] - Diet: Regular Addtl Attending Provider Instructions: Medications: - PROTONIX: new medication to reduce acid production in stomach take 40mg twice a day for three months, will then reduce to daily dosing Esophageal ulcer with acute bleeding causing anemia treated with emergent EGD, clips and epinephrine achieved hemostasis (bleeding stopped) no signs of bleeding the past 72 hours Hemoglobin up to 8.7 today, blood pressure has been stable safe to resume Losartan and aspirin (confirmed with GI doctor) will be on Protonix 40mg twice a day, very important that you take this medication will reduce acid production in stomach and help ulcer heal will take twice a day for 3 months, then reduce to daily no dietary restrictions recommend that you DO NOT take NSAIDs (ibuprofen, naproxen etc) FOLLOW UP - Dr. Clark in one week - Dr. Meeks, gastroenterology, in 1-2 weeks, will need repeat EGD in 3 months Pending Studies at Discharge: No Stand-Alone Forms: Call Back Authorization, My [facility], Smoking Cessation Medications and DC Order Prescriptions: New pantoprazole 40 mg Tablet,Delayed Release (Dr/Ec) 40 mg PO BID 90 Days Qty: 180 RF: 1 Continued aspirin [Aspir-81] 81 mg tablet,delayed release (DR/EC) 81 mg PO DAILY RF: 0 alfuzosin 10 mg tablet extended release 24 hr 10 mg PO DAILY Qty: 90 RF: 3 bisacodyl [Dulcolax (bisacodyl)] 5 mg tablet,delayed release (DR/EC) 5 mg PO DAILY PRN (Reason: Constipation) RF: 0 losartan 25 mg tablet 25 mg PO DAILY RF: 0 Discharge Orders: Discharge Order (Routine); Ordered 02/26/19 Ordered By: Michael Vazquez Admission Data Admit Date/Time: 02/22/19 20:19 Attending Provider: Michael Vazquez Admit Provider: Riaz Ndiaye Primary Care Provider: Bailey Clark Other Providers: Heri Rangel ; Dung Carr ; Duran Allen
== END 2019-02-26 11:34 | disposition home or self-care (01) | DRG 381 ==
LOC: ED 15:22 → OR 23:10 → 1E 02-23 00:44 → SUATTDRO 02-23 00:44 → 2S 02-23 11:28